=== PATIENT | female | born 1955 | race Caucasian/White ===

== ENCOUNTER → 2016-03-15 | Outpatient (CLI) | payer BC ==
--- NOTE | 2016-03-17 09:48 | MM ---
Reason for exam: screening (asymptomatic). Last mammogram was performed 1 year and 5 months ago. History: Patient is postmenopausal and history of other cancer. Family history of breast cancer in maternal aunt at age 70. Took hormonal contraceptives for 5 years beginning at age 21. Physical Findings: A clinical breast exam by your physician is recommended on an annual basis and results should be correlated with mammographic findings. MG Screening Mammo w CAD Bilateral CC and MLO view(s) were taken. Prior study comparison: October 07, 2014, bilateral MG screening mammo w CAD. April 04, 2013, CAD bilateral diagnostic mammogram. The breast tissue is heterogeneously dense. This may lower the sensitivity of mammography. There is no discrete abnormality. No significant changes when compared with prior studies. ASSESSMENT: Negative, BI-RAD 1 RECOMMENDATION: Routine screening mammogram of both breasts in 1 year.
== END | disposition home or self-care (01) ==
LOC: RADMAMWWP 08:17
PROVIDERS: ATTEND Family Medicine
DX: Z12.31 Encounter for screening mammogram for malignant neoplasm of breast (principal)

== ENCOUNTER → 2017-04-11 | Outpatient (CLI) | payer BC ==
--- NOTE | 2017-04-12 13:51 | MM ---
Reason for exam: screening (asymptomatic). Last mammogram was performed 1 year and 1 month ago. History: Patient is postmenopausal and history of other cancer. Family history of breast cancer in maternal aunt at age 70. Took hormonal contraceptives for 5 years beginning at age 21. Physical Findings: A clinical breast exam by your physician is recommended on an annual basis and results should be correlated with mammographic findings. MG 3D Screening Mammo W/Cad Bilateral CC and MLO view(s) were taken. Prior study comparison: March 15, 2016, bilateral MG screening mammo w CAD. October 07, 2014, bilateral MG screening mammo w CAD. The breast tissue is heterogeneously dense. This may lower the sensitivity of mammography. Finding: There are typically benign round calcifications in the right breast. There is a chronic nodularity in the left breast. There is no discrete abnormality. ASSESSMENT: Benign, BI-RAD 2 RECOMMENDATION: Routine screening mammogram of both breasts in 1 year.
== END | disposition home or self-care (01) ==
LOC: RADMAMWWP 09:19
PROVIDERS: ATTEND Family Medicine
DX: Z12.31 Encounter for screening mammogram for malignant neoplasm of breast (principal)
CPT/HCPCS: 77063; 77067

== ENCOUNTER → 2017-11-29 | Outpatient (CLI) | payer BC ==
[2017-11-29 16:30] LABS: HCT 36.1 % (34.0-46.0); HGB 12.3 gm/dL (11.4-16.0); MCH 31.7 pg (25.0-35.0); MCHC 33.9 g/dL (31.0-37.0); MCV 93.5 fL (80.0-100.0); Platelet Count 226 k/uL (150-450); RBC 3.86 m/uL (3.80-5.40); RDW 12.1 % (11.5-15.5); WBC 5.3 k/uL (3.8-10.6)
[2017-11-29 16:38] LABS: Potassium 4.5 mmol/L (3.5-5.1)
== END ==
LOC: LABPAT 14:51
PROVIDERS: ATTEND Internal Medicine Interventional Cardiology
DX: Z01.812 Encounter for preprocedural laboratory examination (principal); I10 Essential (primary) hypertension; E78.1 Pure hyperglyceridemia; R07.9 Chest pain, unspecified; R06.02 Shortness of breath
CPT/HCPCS: 36415; 80051; 82565; 84520; 85027

== ENCOUNTER → 2017-12-02 | Day surgery (SDC) | payer BC ==
[2017-11-29 09:52] VITALS: BMI 28.1
[~2017-12-02] MED LIST: ALPRAZolam 0.25 MG TAB PO PRN; ALPRAZolam 0.5 MG TAB PO PRN; ASPIRIN 325 MG TAB PO STA; ATORVASTATIN 80 MG TAB PO ONE; ATORVASTATIN 80 MG TAB PO STA; IOPAMIDOL-370 125ML BTL INJ ONE; IV FLUID CONTINUATION 800 ML IV ONE; LIDOCAINE 1% INJ 10MG/ML (20 ML MDV) SQ ONE; MIDAZOLAM 2 MG/2 ML VIAL IVP ONE; MIDAZOLAM 2 MG/2 ML VIAL ONE; NITROGLYCERIN SL TABS 0.4 MG TAB SUBLINGUAL PRN; RX INFO: IV CONTRAST WAS GIVEN 1 EACH MISC MISCELLANE PRN; SODIUM CHLORIDE 0.9% 1,000 ML IV SCH; SODIUM CHLORIDE 0.9% 1,000 ML in EMPTY BAG 1 BAG IV ONE; fentaNYL (PF) 50 MCG/ML 2 ML AMP IVP ONE; fentaNYL (PF) 50 MCG/ML 2 ML AMP ONE
[2017-12-02 07:11] VITALS: RESP 16; TEMP 98.2
[2017-12-02] MEDS: BENZOCAINE SPRAY 1 CAN MUCOUS MEM ONE ×2 (07:41→07:50)
[2017-12-02] MEDS: MIDAZOLAM 2 MG/2 ML VIAL IVP ONE ×2 (07:42→07:50)
[2017-12-02] MEDS: fentaNYL (PF) 50 MCG/ML 2 ML AMP IVP ONE ×2 (07:42→07:50)
--- NOTE | 2017-12-02 08:35 | ECHOT ---
TRANSESOPHAGEAL ECHOCARDIOGRAM DATE OF SERVICE: 12/02/2017 PERFORMING PHYSICIAN: Je Pete MD, [facility]. PROCEDURE PERFORMED: Transesophageal echocardiogram. INDICATION: This is a pleasant 62-year-old female patient who was experiencing chest discomfort and shortness of breath. She was seen in the office recently. On physical examination, she was found to have a pansystolic murmur. She underwent a surface echocardiogram and that revealed turbulence across the LVOT with unclear if there is any subaortic line brain, basal septal hypertrophy, or aortic stenosis. The images quality were very poor and because of that, a transesophageal echocardiogram was recommended. COMPLICATION: None. LEVEL OF SEDATION: Moderate with sedation length of 10 minutes. PROCEDURE DESCRIPTION: After obtaining an informed consent, explaining the procedure, benefits, risks, complications and alternatives, the patient was brought to the transesophageal echocardiogram suite. A pulse oximetry and heart rate monitors were attached to the patient prior to the procedure. The patient's throat was sprayed using lidocaine locally. Following that, the patient was turned into left lateral position. A bite guard was placed and the patient was then sedated with the above doses of Versed and fentanyl in divided doses. Following that, the transesophageal echocardiogram probe was advanced through the bite guard into the mid esophagus where 2-D echocardiogram images as well as color Doppler images of various cardiac structures were obtained. We evaluated the interatrial septum using 2-D echocardiogram, color Doppler, and contrast study. The procedure was completed. There were no complications. FINDINGS: The left ventricular dimension and systolic function appeared to be within normal limits. The ejection fraction appeared to be around 50%. There was mild concentric LVH and also there was basal septal hypertrophy. The right ventricle is of normal size and function. Both atria are dilated in the moderate range. The left atrial appendage appeared to be free from any thrombus. The interatrial septum appeared to be intact and I did not see any evidence of [id number] shunt. The septum itself is hyperdynamic. The aortic valve is trileaflet valve and seems to be mildly thickened without stenosis with trace insufficiency. The mitral valve seems to be thickened as well with evidence of mitral valve prolapse with mild MR only. Thickened tricuspid valve leaflets with prolapsing of the tricuspid valve leaflets and evidence of moderate tricuspid regurgitation and the pulmonary artery systolic pressure was found out to be 50 mmHg indicating moderate pulmonary hypertension. CONCLUSION: 1. Normal left ventricular dimension and systolic function. 2. 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 3. Normal right ventricular dimension and systolic function. 4. Moderate biatrial enlargement. 5. Normal left atrial appendage without any evidence of thrombus. 6. Hyperdynamic interatrial septum without any evidence of shunt identified. 7. Trileaflet aortic valve without stenosis with mild insufficiency. 8. Thickened mitral valve leaflets with evidence of mitral valve prolapse I repeat li mitral valve with evidence of mitral valve prolapse and mild mitral regurgitation.. 9. Thickened tricuspid valve leaflets with evidence of moderate tricuspid regurgitation. 10.Moderate pulmonary hypertension. 11.No evidence of pericardial effusion. MMODL / IJN: [id number] /
[2017-12-02] MEDS: MIDAZOLAM 2 MG/2 ML VIAL IV ONE ×2 (09:18→09:48)
--- NOTE | 2017-12-02 11:41 | CC ---
CARDIAC CATHETERIZATION REPORT DATE OF SERVICE: December 02, 2017 PERFORMING PHYSICIAN: Je Pete MD. PROCEDURE PERFORMED: 1. Right heart catheterization. 2. Selective right and left coronary angiogram. 3. Left heart catheterization. 4. Left ventriculography. INDICATION: This is a very pleasant 62-year-old female patient who started recently experiencing intermittent episodes of exertional chest discomfort and exertional shortness of breath. She was found to have tricuspid regurgitation on surface echocardiogram in the office. She was brought today and underwent a transesophageal echocardiogram. Subsequently, she is scheduled to undergo a right and left heart catheterization. APPROACH: Right common femoral vein and right common femoral artery. COMPLICATION: None. LEVEL OF SEDATION: Moderate with a sedation length of 19 minutes. PROCEDURE DESCRIPTION: After obtaining an informed consent, the patient was brought to the cardiac shop laborer. The right common femoral vein was cannulated using micropuncture technique, the micropuncture wire passed easily then I placed an 8-Belizean in the vein. I did cannulate the right common femoral artery using micropuncture technique as well and I placed a 6-Belizean sheath in the right common femoral artery. After that, I did a right heart catheterization using 6-Belizean swan catheter which was initially placed at the wedge position then it was pulled back across the right heart chambers. Subsequently, selective right and left coronary angiogram was performed using JR4 and JL4 catheters. Left heart catheterization was performed using 6-Belizean pigtail catheter and then I did left ventriculography as well. The procedure was completed without any complication. HEMODYNAMICS: 1. The pulmonary capillary wedge pressure was 15 mmHg. 2. Pulmonary artery pressures as follows: Systolic 26, diastolic 14, and mean of 18 mmHg. 3. RV pressures were as follows: Systolic 25 and end-diastolic of 10 mmHg. 4. Right atrial pressure was 6 mmHg. 5. Left ventricular pressures were as follows: Systolic 125, end-diastolic of 13 mm Hg. SELECTIVE CORONARY ANGIOGRAM: 1. Right coronary artery is a large caliber vessel and it is a dominant vessel. The right coronary artery is angiographically normal. Distally, it bifurcates into PDA and PLV branches, both appear to be angiographically normal. 2. The left main is angiographically normal. It bifurcates into left circumflex and left anterior descending artery. 3. The left circumflex is a large caliber vessel. It is a nondominant vessel. The proximal circumflex is angiographically normal and gives rise into the first and second obtuse marginal branches both are angiographically normal. The mid circumflex is normal and gives rise into a third OM branch which appeared to be angiographically normal. The circumflex continued after that as a small-caliber vessel in the AV groove. 4. The LAD: The proximal LAD is angiographically normal. The mid LAD is normal as well and gives rise into a large diagonal branch, which bifurcates into 2 separate branches and the diagonal branch appeared to be angiographically normal. The LAD distal to the diagonal appeared to be a medium caliber vessel and seems to be angiographically normal. Left ventriculography was performed in the BALLESTEROS projection and using a power injection. The left ventricular systolic function seems to be on the low limits of normal with EF around 50% with mid anterior wall hypokinesia. CONCLUSION: 1. Normal right heart pressures. 2. Normal coronary angiogram. 3. Low normal left ventricular systolic function with EF around 50%. POSTPROCEDURE MANAGEMENT: Maximize medical treatment and follow up with the patient. MMODL / IJN: [id number] /
--- NOTE | 2017-12-02 11:49 | LTR ---
Date of Service: 12/02/2017 RE: Olivia Borges Dear Dr. Choi; Ms. Olivia Borges underwent today a transesophageal echocardiogram as well as a right and left heart catheterization. The transesophageal echocardiogram revealed moderate to severe tricuspid regurgitation with evidence of mitral valve prolapse and tricuspid valve prolapse as well. The MR was not bad though. The heart catheterization revealed normal right heart pressures and normal coronaries as well. At this point, I recommended maximize medical treatment and follow up on the tricuspid regurgitation as well as mitral valve apparatus. I want to thank you for allowing me to participate in her care and please do not hesitate to call if you have any question or concern. Sincerely, Je Pete MD MMJENNA / DIXIEN: [id number] /
[2017-12-02 16:02] VITALS: BP 110/65; PULSE 68
== END ==
LOC: CATHCVL 06:23
PROVIDERS: ATTEND Internal Medicine Interventional Cardiology
DX: I08.3 Combined rheumatic disorders of mitral, aortic and tricuspid valves (principal); I27.20 Pulmonary hypertension, unspecified; I10 Essential (primary) hypertension; Z87.891 Personal history of nicotine dependence; I42.2 Other hypertrophic cardiomyopathy; Z79.83 Long term (current) use of bisphosphonates; Z79.1 Long term (current) use of non-steroidal anti-inflammatories (NSAID); Z79.899 Other long term (current) drug therapy
CPT/HCPCS: 93312; 93320; 93325; 93460; C1760; C1769 ×2; C1894 ×2; J2250; J2001; J3010; Q9967

== ENCOUNTER → 2017-12-20 | Outpatient (CLI) | payer BC ==
[2017-12-20 10:53] LABS: Basophils % (A) 0 %; Eosinophils # (A) 0.1 k/uL (0-0.7); Eosinophils % (A) 2 %; HCT 39.5 % (34.0-46.0); HGB 13.4 gm/dL (11.4-16.0); Lymphocytes # (A) 1.1 k/uL (1.0-4.8); Lymphocytes % (A) 23 %; MCH 31.8 pg (25.0-35.0); MCHC 33.9 g/dL (31.0-37.0); MCV 93.7 fL (80.0-100.0); Mean Platelet Volume 7.1; Monocytes # (A) 0.3 k/uL (0-1.0); Monocytes % (A) 7 %; Neutrophils % (A) 66 %; Platelet Count 267 k/uL (150-450); RBC 4.21 m/uL (3.80-5.40); RDW 12.6 % (11.5-15.5); WBC 4.5 k/uL (3.8-10.6)
[2017-12-20 16:09] LABS: Albumin 4.5 g/dL (3.80-4.90); Albumin/Globulin Ratio 2.65 (1.20-2.10); Anion Gap 8.7 mmol/L (4.00-12.00); Calcium 9.7 mg/dL (8.7-10.3); Carbon Dioxide 26.3 mmol/L (21.6-31.8); Globulin 1.7 g/dL (2.1-3.7); LDL Cholesterol,Calculated 95.4 mg/dL (0.0-131.0); Magnesium 1.9 mg/dL (1.5-2.4); Potassium 4.2 mmol/L (3.5-5.5); Total Bilirubin 1.1 mg/dL (0.3-1.2); Total Protein 6.2 g/dL (6.2-8.2)
[2017-12-20 16:19] LABS: T4, Free (Free Thyroxine) 1.5 ng/dL (0.80-1.80)
[2017-12-21 06:59] LABS: VLDL Calculation 15.6 mg/dL (5.00-40.00)
== END | disposition home or self-care (01) ==
LOC: LABWHC1 09:23
PROVIDERS: ATTEND Internal Medicine Geriatric Medicine
DX: R00.1 Bradycardia, unspecified (principal); I10 Essential (primary) hypertension; K21.9 Gastro-esophageal reflux disease without esophagitis; I20.9 Angina pectoris, unspecified
CPT/HCPCS: 36415; 80053; 80061; 83735; 84439; 84443; 85025

== ENCOUNTER 2018-02-01 06:16 | Day surgery (SDC) | payer BC ==
[2018-01-31 09:27] VITALS: BMI 28.1
[~2018-02-01 06:16] MED LIST changes: -ALPRAZolam 0.25 MG TAB PO PRN; -ALPRAZolam 0.5 MG TAB PO PRN; -ASPIRIN 325 MG TAB PO STA; -ATORVASTATIN 80 MG TAB PO ONE; -ATORVASTATIN 80 MG TAB PO STA; +DEXAMETHASONE SOD PHOSPHATE 10 MG/ML 1 ML VIAL IV ONE; +HYDROmorphone 0.5 MG/0.5 ML SYRINGE IVP PRN; -IOPAMIDOL-370 125ML BTL INJ ONE; -IV FLUID CONTINUATION 800 ML IV ONE; +LACTATED RINGERS 1,000 ML IV SCH; +LIDOCAINE 1% 20 ML VIAL (10MG/ML) FOR IV START INTRADERMA PRN; -LIDOCAINE 1% INJ 10MG/ML (20 ML MDV) SQ ONE; +MIDAZOLAM 2 MG/2 ML VIAL IV PRN; -MIDAZOLAM 2 MG/2 ML VIAL IVP ONE; -MIDAZOLAM 2 MG/2 ML VIAL ONE; -NITROGLYCERIN SL TABS 0.4 MG TAB SUBLINGUAL PRN; +ONDANSETRON 4 MG/2 ML VIAL IVP ONE; -RX INFO: IV CONTRAST WAS GIVEN 1 EACH MISC MISCELLANE PRN; +SCOPOLAMINE 1.5MG/72HR PATCH TRANSDERM ONE; -SODIUM CHLORIDE 0.9% 1,000 ML IV SCH; -SODIUM CHLORIDE 0.9% 1,000 ML in EMPTY BAG 1 BAG IV ONE; +ceFAZolin IN SWFI 2 GM/20 ML SYRINGE IVP ONE; -fentaNYL (PF) 50 MCG/ML 2 ML AMP IVP ONE; -fentaNYL (PF) 50 MCG/ML 2 ML AMP ONE
[2018-02-01 06:51] VITALS: RESP 16; TEMP 98.2
[2018-02-01] MEDS ORDERED: MIDAZOLAM 2 MG/2 ML VIAL IV ONE (07:45)
[2018-02-01] MEDS ORDERED: HYDROcodone/APAP 5-325MG 1 EACH TAB PO PRN ×2 (07:52)
[2018-02-01] MEDS ORDERED: ONDANSETRON 4 MG/2 ML VIAL IVP PRN (07:52)
[2018-02-01] MEDS ORDERED: HYDROmorphone 1 MG/ML 1 ML SYRINGE IVP PRN (07:52)
[2018-02-01] MEDS ORDERED: PROPOFOL 10 MG/ML 20 ML VIAL IV ONE (07:57)
[2018-02-01] MEDS ORDERED: ROPIVACAINE 5 MG/ML 30 ML VIAL ONE (07:57)
[2018-02-01] MEDS ORDERED: LIDOCAINE 1% INJ 10MG/ML (20 ML MDV) ONE (07:57)
[2018-02-01] MEDS ORDERED: ePHEDrine SULFATE/0.9% NACL/PF 50 MG/5 ML SYRINGE IV ONE (07:57)
[2018-02-01] MEDS ORDERED: fentaNYL (PF) 50 MCG/ML 2 ML AMP ONE (07:57)
[2018-02-01] MEDS ORDERED: LACTATED RINGERS 1,000 ML IV SCH (08:00)
[2018-02-01] MEDS ORDERED: LACTATED RINGERS 1,000 ML IV ONE (09:43)
--- NOTE | 2018-02-01 10:17 | XR ---
Fluoroscopy History: ORIF RT ankle. 1 min 55 sec FL time. 3 images scanned.
--- NOTE | 2018-02-01 10:32 | P.OP ---
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 Right gastrocnemius equinus contracture Postoperative Diagnosis: Same Procedure(s) Performed: 1. Right talonavicular joint fusion 2. Right gastrocnemius recession Anesthesia: HUAN Surgeon: Mahesh Browning Outside Machinist Supervisor #1: Manjeet Torres Estimated Blood Loss (ml): 10 IV fluids (ml): 950 Pathology: none sent Condition: stable Disposition: PACU Indications for Procedure: The patient is a very pleasant 62-year-old female with residual right clubfoot and talonavicular arthritis. She had surgery when she was a small child has had symptoms intermittently throughout her adult life. She has been seeing me for the last several years. Treatment to date has included icing, activity modification, anti-inflammatory medications and orthotics. She continued to have pain and had an image guided talonavicular joint injection in the operating room. She had almost complete relief of her symptoms following this image guided injection. Clinically most of the symptoms seem to be coming from her talonavicular joint. She did have some degenerative changes in the posterior facet of the subtalar joint but had minimal symptoms in the hindfoot. She failed to improve with conservative treatment and requested surgery. Since she had complete resolution of her symptoms with the image guided talonavicular joint injection I recommended an isolated fusion of the talonavicular joint. She also had a gastrocnemius equinus contracture and I recommended a surgical lengthening. We discussed potential risks and competitions of surgery including but not limited to risk of anesthesia, superficial infection, deep infection, delayed wound healing, wound necrosis, damage to local blood vessels or nerves, damage local tenderness structures, nonunion of the fusion site, malunion the fusion site, over correction of her deformity, under correction of her deformity, continued or worsened pain, synthetic hardware, need for further surgery, weakness, DVT, PE, other medical complications, and generalized dissatisfaction with surgery. The patient voiced understanding of this and provided her verbal and written consent to go forward with surgery. Description of Procedure: The patient was identified in preoperative holding and the correct right leg was marked with my initials. I reviewed the consent form with the patient and her . All their questions were answered. The patient was given a popliteal and saphenous nerve block by anesthesia. She was then brought back to the operating room by anesthesia. She was positioned on the OR table where general anesthetic was administered. Preoperative antibiotics were given. A tourniquet was applied to the proximal aspect of the right leg. All bony prominences were well-padded. The patient's right leg was then prepped and draped in the standard sterile fashion. Prior to starting surgery timeout was performed identifying the correct patient, operative extremity, and procedure. The patient's leg was then elevated, exsanguinated with an Esmarch bandage, and the tourniquet was inflated to 250 mmHg. I began by performing a gastrocnemius recession. A 3 cm incision was marked out over the posteromedial calf at the distal medial muscle belly of the gastrocnemius. Skin incision was made with a scalpel and dissection was carried down carefully to the subcutaneous tissue with tenotomy scissors. The superficial fascia was identified and incised longitudinally in line with the skin incision. I then bluntly developed interval between the gastrocnemius aponeurosis and superficial fascia. The sural nerve was seen to be adherent gastrocnemius aponeurosis and was gently teased off with a Horton elevator. Modified right angle retractors were placed and the gastrocnemius aponeurosis was sharply released from lateral to medial. There was then a significant increase in the amount of passive dorsiflexion of the ankle with the knee extended. The wound was copiously irrigated and closed in layers. Attention was then turned to the dorsal foot. A longitudinal incision was marked out over the dorsomedial aspect of the foot centered over the talonavicular joint. Skin incision was made with a scalpel dissection was carried down To the subcutaneous tissue. The interval between the EHL and tibialis anterior was exposed. The capsule over the talonavicular joint was incised longitudinally in line with the skin incision. On inspection there were large peripheral osteophytes from the talonavicular joint. The capsule was thickened and inflamed. There was a large amount of clear synovial fluid. K wires were placed in the talar head and the ventricular and a distractor was applied to allow visualization of the joint. On inspection there was complete loss of articular cartilage from the talar head over the lateral two thirds the joint. There is complete loss of cartilage throughout the navicular. Using a series of osteotomes and curettes all of the cartilage was removed. It was thoroughly irrigated with sterile saline. A 2.0 mm drill bit was used perforate the exposed subchondral bone to facilitate fusion. Augment was placed in the joint. The K wires were then removed and the joint was positioned so a plantigrade position of the foot was achieved. The joint was then pinned. A K wire was then placed through a stab incision over the navicular tuberosity across the navicular and into the talar body. The position of the K wire was verified with fluoroscopy. A partially threaded 5.5 mm cannulated screws placed over the guidewire generating excellent compression across the joint. I then placed a second 4.0 mm partially threaded cannulated screw across the dorsal navicular and into the talar body. Final fluoroscopic images were then taken. The joint appeared to be adequately compressed with no remaining joint space visualized. The hardware appeared to be completely within the talus and there were no intra-articular screws. Clinically the foot appeared to be in a plantigrade position. On inspection of the talonavicular joint there was excellent compression seemed to the surgical wound. The wound was copiously irrigated. The joint capsule of the talonavicular joint was closed with a single interrupted 2-0 Vicryl stitch. The retinaculum over the tendons was closed with a running 2-0 Vicryl. Several attaining us 2-0 Vicryl were placed to reapproximate the subcutaneous tissue. The skin was closed with a running 3-0 Monocryl subcuticular stitch. Steri-Strips were applied. I verified that all instrument, sponge, and sharp counts were correct. The tourniquet was let down. A sterile dressing consisting of Betadine soaked Adaptic, 4 x 4, and web rolls applied. The drapes were taken down and a well- padded bulky Naranjo splint was placed with the ankle in neutral. The patient was then transferred to a [place]. She was awoken from her anesthetic, extubated , and transferred to PACU without the procedure well. Manjeet Torres PA-C was required as a skilled assistant film editor for patient positioning, surgical exposure, retraction, preparation of the joint, placement of hardware, closure of wounds, application of splint. Plan: The patient is going to discharge home as an outpatient. She is to remain strictly nonweightbearing on her operative extremity. She is keep the splint on at all times. She is encouraged ice and elevate to help with resolution of swelling and pain. She'll follow-up in the office in 2 weeks for splint removal, nonweightbearing x-rays of the foot out of the splint, suture removal, and placement of a cast.
[2018-02-01] MEDS ORDERED: KETOROLAC 30 MG/ML 1 ML VIAL IVP ONE (10:55)
[2018-02-01 12:07] VITALS: BP 108/64; PULSE 89
--- NOTE | 2018-02-01 14:10 | P.ONQ ---
Anesthesiology Proc Note - PNB - Peripheral Nerve Block Performed Right Popliteal Single Time Out Performed: Yes Procedure Start Time: 07:45 Procedure Stop Time: 07:51 Indication: Acute Post-Operative Pain, Requested by physician Sedation Type: Sedate with meaningful contact maintained Preparation: Sterile Prep Position: Supine Needle Size: 50mm (2") Needle Gauge: 21 Technique: Ultrasound Injectate: 0.5% Ropivacaine (see comment for volume) (ropi .5% 20 cc) Blood Aspirated: No Pain Paresthesia on Injection Noted: No Resistance on Injection: Normal Events: Uneventful and Well Tolerated
== END 2018-02-01 13:51 | disposition home or self-care (01) ==
LOC: OR 06:16
PROVIDERS: ATTEND Orthopaedic Surgery
DX: M19.071 Primary osteoarthritis, right ankle and foot (principal); M21.541 Acquired clubfoot, right foot; M62.461 Contracture of muscle, right lower leg; I10 Essential (primary) hypertension; Z85.828 Personal history of other malignant neoplasm of skin; Z87.891 Personal history of nicotine dependence; I71.4 Abdominal aortic aneurysm, without rupture; Z79.82 Long term (current) use of aspirin; Z79.1 Long term (current) use of non-steroidal anti-inflammatories (NSAID); Z79.899 Other long term (current) drug therapy
CPT/HCPCS: 28740; 27687; 97161; 64450; 73600; C1713 ×2; J2250; J1100; J2405; J2001; J3010; J1885; J2795; J2704; J0690; 64493

== ENCOUNTER → 2018-06-21 | Outpatient (CLI) | payer BC ==
--- NOTE | 2018-06-21 15:21 | BD ---
EXAMINATION TYPE: Axial Bone Density DATE OF EXAM: 06/21/2018 COMPARISON: NONE CLINICAL HISTORY: M81.0 Height: 62.2 IN Weight: 185 LBS RISK FACTORS HISTORY OF: Active: YES Diet low in dairy products/other sources of calcium: YES Postmenopausal woman: AGE 54 MEDICATIONS: Additional Medications: CALCIUM, VIT D, MULTI VITAMINS, EYE VITAMIN, EXAM MEASUREMENTS: Bone mineral densitometry was performed using the Snapguide System. Bone mineral density as measured about the Lumbar spine is: ----- L1-L4(G/cm2): 1.369 T Score Values are as follows: ----- L2: 0.5 ----- L3: 2.1 ----- L4: 3.9 ----- L1-L4: 1.6 Bone mineral density BASELINE Bone mineral density about the R hip (g/cm2): 0849 Bone mineral density about the L hip (g/cm2): 0.919 T Score values are as follows: -----R Neck: -1.4 -----L Neck: -0.9 -----R Total: -1.2 -----L Total: 0.0 Bone mineral density BASELINE IMPRESSION: Osteopenia (T Score between -2.5 and -1). There is slightly increased risk of fracture and the patient may be considered for treatment. Re-Screen 2-5 years. NOTE: T-SCORE=SD OF THE YOUNG ADULT MEAN.
--- NOTE | 2018-06-23 08:25 | MM ---
Reason for exam: screening (asymptomatic). Last mammogram was performed 1 year and 2 months ago. History: Patient is postmenopausal and history of other cancer. Family history of breast cancer in maternal aunt at age 70. Took hormonal contraceptives for 5 years beginning at age 21. Physical Findings: A clinical breast exam by your physician is recommended on an annual basis and results should be correlated with mammographic findings. MG 3D Screening Mammo W/Cad Bilateral CC and MLO view(s) were taken. Prior study comparison: April 11, 2017, bilateral MG 3d screening mammo w/cad. March 15, 2016, bilateral MG screening mammo w CAD. There are scattered fibroglandular densities. There is chronic nodularity in the left lower inner quadrant. No significant changes when compared with prior studies. ASSESSMENT: Benign, BI-RAD 2 RECOMMENDATION: Routine screening mammogram of both breasts in 1 year. Manage on a clinical basis with regard to patient's chronic left chest wall fullness. If there is a palpable abnormality, patient should be referred for ultrasound.
== END | disposition home or self-care (01) ==
LOC: RADMAMWWP 13:48
PROVIDERS: ATTEND Internal Medicine Geriatric Medicine
DX: Z12.31 Encounter for screening mammogram for malignant neoplasm of breast (principal); M85.851 Other specified disorders of bone density and structure, right thigh
CPT/HCPCS: 77063; 77067; 77080

== ENCOUNTER 2019-04-10 08:42 | Day surgery (SDC) | payer BC ==
[2019-04-06 12:55] VITALS: BMI 26.6
[~2019-04-10 08:42] MED LIST changes: -DEXAMETHASONE SOD PHOSPHATE 10 MG/ML 1 ML VIAL IV ONE; -HYDROmorphone 0.5 MG/0.5 ML SYRINGE IVP PRN; -MIDAZOLAM 2 MG/2 ML VIAL IV PRN; -ONDANSETRON 4 MG/2 ML VIAL IVP ONE; -SCOPOLAMINE 1.5MG/72HR PATCH TRANSDERM ONE; -ceFAZolin IN SWFI 2 GM/20 ML SYRINGE IVP ONE
[2019-04-10 08:58] VITALS: RESP 16; TEMP 96.9
[2019-04-10] MEDS ORDERED: PROPOFOL 10 MG/ML 20 ML VIAL IV ONE (09:46)
[2019-04-10] MEDS ORDERED: LIDOCAINE 1% INJ 10MG/ML (20 ML MDV) ONE (09:46)
[2019-04-10] MEDS ORDERED: LACTATED RINGERS 1,000 ML IV ONE (10:34)
--- NOTE | 2019-04-10 10:37 | P.PCN ---
Date of Procedure: 04/10/19 Description of Procedure: BRIEF HISTORY: Patient is a 64-year-old female who presents for outpatient colonoscopy for screening for malignant neoplasm of the colon. She reports last colonoscopy was 5 years ago with polyps removed. She denies any change in bowel habits, blood per rectum or abdominal pain. PROCEDURE PERFORMED: Colonoscopy with polypectomy. PREOPERATIVE DIAGNOSIS: Screening for malignant neoplasm of the colon, last colonoscopy 5 years ago, patient does report polypectomy in the past. ESTIMATED BLOOD LOSS: Minimal. IV sedation per Anesthesia. PROCEDURE: After informed consent was obtained, the patient, was brought into the endoscopy unit. IV sedation was administered by Anesthesia under continuous monitoring. Digital rectal examination was normal. Initially the Olympus CF-190 flexible video colonoscope was then inserted in the rectum, gradually advanced into the cecum without any difficulty. Careful examination was performed as the scope was gradually being withdrawn. Ileocecal valve and the appendiceal orifice were visualized and appeared normal. Prep was excellent. Mucosa of the cecum, ascending colon, transverse colon, descending colon, sigmoid colon, and rectum appeared normal. Diminutive 2 mm cecal polyp removed with cold forcep polypectomy. 2 flat ascending colon polyps measuring 4 and 6 mm in size removed with cold snare polypectomy. Diminutive 2 mm transverse colon polyp removed with cold forcep polypectomy. Diminutive 2 mm descending colon polyp removed with cold forcep polypectomy. Retroflexion was performed in the rectum and no lesions were seen. The patient tolerated the procedure well. IMPRESSION: 3 diminutive polyps removed from the cecum, transverse colon and descending colon with cold forceps. 2 small descending colon polyps removed with cold snare polypectomy. RECOMMENDATIONS: Findings of this examination were discussed with the patient and her family. Okay to resume diet. Okay to resume medications. Await pathology from polypectomies. Would recommend repeat colonoscopy in 5 years pending pathology from polypectomies.
[2019-04-10 10:48] VITALS: BP 108/70; PULSE 59
== END 2019-04-10 11:27 | disposition home or self-care (01) ==
LOC: ORWHC2ENDO 08:42
PROVIDERS: ATTEND Internal Medicine
DX: Z12.11 Encounter for screening for malignant neoplasm of colon (principal); D12.0 Benign neoplasm of cecum; D12.2 Benign neoplasm of ascending colon; D12.3 Benign neoplasm of transverse colon; K63.5 Polyp of colon; Z86.010 Personal history of colon polyps; I10 Essential (primary) hypertension; Z87.891 Personal history of nicotine dependence; Z79.1 Long term (current) use of non-steroidal anti-inflammatories (NSAID); Z79.899 Other long term (current) drug therapy; Z90.49 Acquired absence of other specified parts of digestive tract; Z98.890 Other specified postprocedural states; Z98.51 Tubal ligation status; Z80.0 Family history of malignant neoplasm of digestive organs
CPT/HCPCS: 88305; 45380; 45385; J2001; J2704

== ENCOUNTER → 2019-09-20 | Outpatient (CLI) | payer BC ==
--- NOTE | 2019-09-21 09:26 | MM ---
Reason for exam: screening (asymptomatic). Last mammogram was performed 1 year and 3 months ago. History: Patient is postmenopausal and history of other cancer. Family history of breast cancer in maternal aunt at age 70. Took hormonal contraceptives for 5 years beginning at age 21. Physical Findings: A clinical breast exam by your physician is recommended on an annual basis and results should be correlated with mammographic findings. MG 3D Screening Mammo W/Cad Bilateral CC and MLO view(s) were taken. Prior study comparison: June 21, 2018, bilateral MG 3d screening mammo w/cad. April 11, 2017, bilateral MG 3d screening mammo w/cad. The breast tissue is heterogeneously dense. This may lower the sensitivity of mammography. Finding: There are grouped/clustered vee like calcifications in the subareolar position of the right breast. ASSESSMENT: Incomplete: need additional imaging evaluation, BI-RAD 0 RECOMMENDATION: Special view mammogram of the right breast. [facility] will attempt to contact patient to return for supplemental views.
== END | disposition home or self-care (01) ==
LOC: RADMAMWWP 09:52
PROVIDERS: ATTEND Internal Medicine Geriatric Medicine
DX: Z12.31 Encounter for screening mammogram for malignant neoplasm of breast (principal)
CPT/HCPCS: 77063; 77067

== ENCOUNTER → 2019-09-28 | Outpatient (CLI) | payer BC ==
--- NOTE | 2019-10-02 09:59 | MM ---
Reason for exam: additional evaluation requested from abnormal screening. Last mammogram was performed less than 1 month ago. History: Patient is postmenopausal and history of other cancer. Family history of breast cancer in maternal aunt at age 70 and breast cancer in maternal cousin. Took hormonal contraceptives for 5 years beginning at age 21. Physical Findings: Nurse did not find any significant physical abnormalities on exam. MG 3D Work Up W/Cad RT CC with magnification, ML with magnification, and ML view(s) were taken of the right breast. Prior study comparison: September 20, 2019, bilateral MG 3d screening mammo w/cad. June 21, 2018, bilateral MG 3d screening mammo w/cad. Benign calcifications. These results were verbally communicated with the patient and result sheet given to the patient on 09/28/19. ASSESSMENT: Benign, BI-RAD 2 RECOMMENDATION: Return to routine screening mammogram schedule for both breasts.
== END | disposition home or self-care (01) ==
LOC: RADMAMWWP 09:39
PROVIDERS: ATTEND Internal Medicine Geriatric Medicine
DX: R92.8 Other abnormal and inconclusive findings on diagnostic imaging of breast (principal)
CPT/HCPCS: 77061; 77065

== ENCOUNTER → 2020-12-15 | Outpatient (CLI) | payer BC ==
--- NOTE | 2020-12-16 13:35 | MM ---
Reason for exam: screening (asymptomatic). Last mammogram was performed 1 year and 3 months ago. History: Patient is postmenopausal and history of other cancer. Family history of breast cancer in maternal aunt at age 70 and breast cancer in maternal cousin. Took hormonal contraceptives for 5 years beginning at age 21. Physical Findings: A clinical breast exam by your physician is recommended on an annual basis and results should be correlated with mammographic findings. MG 3D Screening Mammo W/Cad Bilateral CC and MLO view(s) were taken. Prior study comparison: September 20, 2019, bilateral MG 3d screening mammo w/cad. June 21, 2018, bilateral MG 3d screening mammo w/cad. April 11, 2017, bilateral MG 3d screening mammo w/cad. March 15, 2016, bilateral MG screening mammo w CAD. There are scattered fibroglandular densities. No significant changes when compared with prior studies. ASSESSMENT: Benign, BI-RAD 2 RECOMMENDATION: Routine screening mammogram of both breasts in 1 year.
== END | disposition home or self-care (01) ==
LOC: RADMAMWWP 10:53
PROVIDERS: ATTEND Internal Medicine Geriatric Medicine
DX: Z12.31 Encounter for screening mammogram for malignant neoplasm of breast (principal); Z80.3 Family history of malignant neoplasm of breast
CPT/HCPCS: 77063; 77067

== ENCOUNTER → 2021-01-28 | Outpatient (CLI) | payer BC ==
--- NOTE | 2021-01-28 23:51 | BD ---
EXAMINATION TYPE: Axial Bone Density DATE OF EXAM: 01/28/2021 COMPARISON: NONE CLINICAL HISTORY: Height: 5 TF 6 IN Weight: 170 FRAX RISK QUESTIONS: Alcohol (3 or more units per day): NO Family History (Parent hip fracture): NO Glucocorticoids (More than 3mos): NO (Ex: prednisone, prednisolone, methylprednisolone, dexamethasone, and hydrocortisone). History of Fracture in Adulthood: YES Secondary Osteoporosis: 1. Type 1 Diabetes: NO 2. Hyperthyroidism: NO 3. Menopause before 45: NO 4. Malnutrition: NO 5. Chronic liver disease: NO Rheumatoid Arthritis: NO Current Tobacco Use: NO RISK FACTORS HISTORY OF: Surgery to Spine/Hip(right/left)/Wrist (right/left): NO Family History of Osteoporosis: NO Active: YES Diet low in dairy products/other sources of calcium: NO Postmenopausal woman: YES Take estrogen and/or progesterone medications: NO Lost more than 2 inches in height since high school: NO Frequent falls: NO Poor Health: GOOD Hyperparathyroidism: NO Adrenal Insufficiency: NO MEDICATIONS: Additional Medications: HYDROCHLOROTHIAZIDE, Additional History: EXAM MEASUREMENTS: Bone mineral densitometry was performed using the [employer] System. Bone mineral density as measured about the Lumbar spine is: ----- L1-L4(G/cm2): 1.376 T Score Values are as follows: ----- L2: 0.8 ----- L3: 2.7 ----- L4: 3.4 ----- L1-L4: 1.6 Bone mineral density has: INCREASED 0.6 % since study of: 2018 Bone mineral density about the R hip (g/cm2): 0.870 Bone mineral density about the L hip (g/cm2): 0.923 T Score values are as follows: -----R Neck: -1.2 -----L Neck: -0.8 -----R Total: -0.9 -----L Total: -0.2 Bone mineral density has: INCREASED 0.3 % since study of: 2019 IMPRESSION: Osteopenia (T Score between -2.5 and -1). There is slightly increased risk of fracture and the patient may be considered for treatment. Re-Screen 2-5 years. NOTE: T-SCORE=SD OF THE YOUNG ADULT MEAN.
== END | disposition home or self-care (01) ==
LOC: RADBDWWP 12:33
PROVIDERS: ATTEND Internal Medicine Geriatric Medicine
DX: M85.88 Other specified disorders of bone density and structure, other site (principal)
CPT/HCPCS: 77080

== ENCOUNTER 2021-03-27 12:15 | Inpatient (IN) | payer MEDICARE, BC ==
[2021-03-27 13:39] LABS: Basophils % (A) 0 %; Eosinophils # (A) 0.1 k/uL (0-0.7); Eosinophils % (A) 3 %; HCT 37.6 % (34.0-46.0); HGB 12.9 gm/dL (11.4-16.0); Lymphocytes # (A) 1.5 k/uL (1.0-4.8); Lymphocytes % (A) 34 %; MCH 32.5 pg (25.0-35.0); MCHC 34.4 g/dL (31.0-37.0); MCV 94.3 fL (80.0-100.0); Mean Platelet Volume 7.1; Monocytes # (A) 0.3 k/uL (0-1.0); Monocytes % (A) 7 %; Neutrophils # (A) 2.3 k/uL (1.3-7.7); Neutrophils % (A) 53 %; Platelet Count 255 k/uL (150-450); RBC 3.99 m/uL (3.80-5.40); RDW 11.9 % (11.5-15.5); WBC 4.4 k/uL (3.8-10.6)
--- NOTE | 2021-03-27 13:49 | XR ---
EXAMINATION TYPE: XR chest 2V DATE OF EXAM: 03/27/2021 COMPARISON: None INDICATION: Dysrhythmia,Covid TECHNIQUE: Frontal and lateral views of the chest are obtained. FINDINGS: The heart size is mildly prominent. The pulmonary vasculature is normal. The lungs are clear. IMPRESSION: 1. Mild cardiomegaly
[2021-03-27 14:01] LABS: ALT 22 U/L (4-34); AST 28 U/L (14-36); African American GFR (CKD) >90 (>60 ml/min/1.73 sqM); Albumin 4.1 g/dL (3.5-5.0); Alkaline Phosphatase 71 U/L (38-126); Anion Gap 6 mmol/L; Blood Urea Nitrogen 12 mg/dL (7-17); Calcium 9.3 mg/dL (8.4-10.2); Carbon Dioxide 24 mmol/L (22-30); Chloride 98 mmol/L (98-107); Glucose 83 mg/dL (74-99); Non-African American GFR(CKD) >90 (>60 ml/min/1.73 sqM); Potassium 4.6 mmol/L (3.5-5.1); Sodium 128 mmol/L (137-145); Total Protein 6.6 g/dL (6.3-8.2)
[2021-03-27 14:04] LABS: INR 0.9 (<1.2); Partial Thromboplastin Time 25.5 sec (22.0-30.0); Prothrombin Time 10.1 sec (9.0-12.0)
--- NOTE | 2021-03-27 14:24 | ED ---
General Adult HPI - General Chief complaint: Recheck/Abnormal Lab/Rx Stated complaint: abnormal EKG Time Seen by Provider: 03/27/21 12:41 Source: patient Limitations: no limitations - History of Present Illness Initial comments: 65-year-old female who presents emergency department from Dr. Choi office. She was seen last week in office for an enlarged lymph node. It they placed her on antibiotics and steroids. She was to follow up today reevaluation. She subsequently developed cold-like symptoms. In office, the patient had a bradycardic rhythm. EKG was performed which demonstrated long sinus pauses. They tested her for cold and she was Covid positive. I did recommend she come into the emergency room for further cardiac evaluation. She denies previous history of cardiac disease. Patient not on any rate controlling medications. Denies previous history of cardiac workup. No other alleviating, precipitating or modifying factors - Related Data Home Medications Medication Instructions Recorded Confirmed Ascorbic Acid [Vitamin C] 1,000 mg PO DAILY 11/29/17 03/27/21 Multivit-Min/Iron/Folic/Lutein 1 tab PO DAILY 11/29/17 03/27/21 [Centrum Silver Women Tablet] Retinavites Supplement 1 tab PO DAILY 11/29/17 03/27/21 hydroCHLOROthiazide 25 mg PO Q48H 11/29/17 03/27/21 Doxycycline [Vibramycin] 100 mg PO BID 03/27/21 03/27/21 Allergies Allergy/AdvReac Type Severity Reaction Status Date / Time No Known Allergies Allergy Verified 03/27/21 13:43 Review of Systems ROS Statement: Those systems with pertinent positive or pertinent negative responses have been documented in the HPI. ROS Other: All systems not noted in ROS Statement are negative. Past Medical History Past Medical History: Cancer, Hypertension Additional Past Medical History / Comment(s): varicose veins, basal cell skin CA, hx. colon polyps History of Any Multi-Drug Resistant Organisms: None Reported Past Surgical History: Cholecystectomy, Heart Catheterization, Orthopedic Surgery, Tubal Ligation Additional Past Surgical History / Comment(s): club foot surg as ,basal cell removed-Moh's procedure, right foot surg. Past Anesthesia/Blood Transfusion Reactions: No Reported Reaction, Motion Sickness Past Psychological History: No Psychological Hx Reported Smoking Status: Never smoker Past Alcohol Use History: Occasional Past Drug Use History: Marijuana - Past Family History Mother Family Medical History: No Reported History Father Family Medical History: Cancer Additional Family Medical History / Comment(s): bladder,leukemia General Exam Limitations: no limitations Course Vital Signs 03/27/21 03/27/21 03/27/21 12:24 13:28 15:00 Temperature 97.4 F L Pulse Rate 74 62 65 Respiratory 18 20 16 Rate Blood Pressure 139/83 124/84 122/89 O2 Sat by Pulse 100 97 97 Oximetry EKG Findings - EKG Comments: EKG Findings:: EKG demonstrates a sinus bradycardia with a ventricular rate of 56. NH interval 178. QRS 100. QTC of 401. No acute ST segment elevations or depressions. No signs of high degree heart block. Medical Decision Making - Medical Decision Making Upon arrival patient was placed into room 4. I did review her EKG which does demonstrate some sinus pauses. 12-lead EKG is obtained here which demonstrates no acute process. Laboratory studies are conducted. Sodium is 128. Chest x- ray demonstrates no acute process. Mild cardiomegaly. Results discussed the patient. I did call and speak with Dr. Tenorio recommend cardiac monitoring overnight. Patient agrees to stay. Spoke with Dr. Choi who agreed to admit the patient. Patient has received recoated vaccines and therefore does not qualify for antibodies. - Lab Data Result diagrams: 03/27/21 13:27 03/27/21 13:27 Lab Results 03/27/21 03/27/21 03/27/21 Range/Units 13:27 13:27 13:27 WBC 4.4 (3.8-10.6) k/uL RBC 3.99 (3.80-5.40) m/uL Hgb 12.9 (11.4-16.0) gm/dL Hct 37.6 (34.0-46.0) % MCV 94.3 (80.0-100.0) fL MCH 32.5 (25.0-35.0) pg MCHC 34.4 (31.0-37.0) g/dL RDW 11.9 (11.5-15.5) % Plt Count 255 (150-450) k/uL MPV 7.1 Neutrophils % 53 % Lymphocytes % 34 % Monocytes % 7 % Eosinophils % 3 % Basophils % 0 % Neutrophils # 2.3 (1.3-7.7) k/uL Lymphocytes # 1.5 (1.0-4.8) k/uL Monocytes # 0.3 (0-1.0) k/uL Eosinophils # 0.1 (0-0.7) k/uL Basophils # 0.0 (0-0.2) k/uL PT 10.1 (9.0-12.0) sec INR 0.9 (<1.2) APTT 25.5 (22.0-30.0) sec Sodium 128 L (137-145) mmol/L Potassium 4.6 (3.5-5.1) mmol/L Chloride 98 (98-107) mmol/L Carbon Dioxide 24 (22-30) mmol/L Anion Gap 6 mmol/L BUN 12 (7-17) mg/dL Creatinine 0.58 (0.52-1.04) mg/dL Est GFR (CKD-EPI)AfAm >90 (>60 ml/min/1.73 sqM) Est GFR (CKD-EPI)NonAf >90 (>60 ml/min/1.73 sqM) Glucose 83 (74-99) mg/dL Calcium 9.3 (8.4-10.2) mg/dL Magnesium 2.0 (1.6-2.3) mg/dL Total Bilirubin 1.0 (0.2-1.3) mg/dL AST 28 (14-36) U/L ALT 22 (4-34) U/L Alkaline Phosphatase 71 (38-126) U/L Troponin I (0.000-0.034) ng/mL Total Protein 6.6 (6.3-8.2) g/dL Albumin 4.1 (3.5-5.0) g/dL 03/27/21 Range/Units 13:27 WBC (3.8-10.6) k/uL RBC (3.80-5.40) m/uL Hgb (11.4-16.0) gm/dL Hct (34.0-46.0) % MCV (80.0-100.0) fL MCH (25.0-35.0) pg MCHC (31.0-37.0) g/dL RDW (11.5-15.5) % Plt Count (150-450) k/uL MPV Neutrophils % % Lymphocytes % % Monocytes % % Eosinophils % % Basophils % % Neutrophils # (1.3-7.7) k/uL Lymphocytes # (1.0-4.8) k/uL Monocytes # (0-1.0) k/uL Eosinophils # (0-0.7) k/uL Basophils # (0-0.2) k/uL PT (9.0-12.0) sec INR (<1.2) APTT (22.0-30.0) sec Sodium (137-145) mmol/L Potassium (3.5-5.1) mmol/L Chloride (98-107) mmol/L Carbon Dioxide (22-30) mmol/L Anion Gap mmol/L BUN (7-17) mg/dL Creatinine (0.52-1.04) mg/dL Est GFR (CKD-EPI)AfAm (>60 ml/min/1.73 sqM) Est GFR (CKD-EPI)NonAf (>60 ml/min/1.73 sqM) Glucose (74-99) mg/dL Calcium (8.4-10.2) mg/dL Magnesium (1.6-2.3) mg/dL Total Bilirubin (0.2-1.3) mg/dL AST (14-36) U/L ALT (4-34) U/L Alkaline Phosphatase (38-126) U/L Troponin I <0.012 (0.000-0.034) ng/mL Total Protein (6.3-8.2) g/dL Albumin (3.5-5.0) g/dL Disposition Clinical Impression: Sinus bradycardia, Sinus pause Disposition: ADMITTED IP TO THIS [facility] Condition: Stable Is patient prescribed a controlled substance at d/c from ED?: No Decision to Admit Reason: Admit from EC Decision Date: 03/27/21 Decision Time: 14:48
[2021-03-27] MEDS ORDERED: NALOXONE 0.4 MG/ML 1 ML VIAL IV PRN (14:48)
[2021-03-27] MEDS ORDERED: SODIUM CHLORIDE 0.9% 1,000 ML IV STA (15:06)
--- NOTE | 2021-03-27 16:14 | P.HPIM ---
History of Present Illness H&P Date: 03/27/21 Chief Complaint: Severe bradycardia with possible Mobitz 2, COVID-19, hypert ension HISTORY OF PRESENT ILLNESS 65-year-old female one of my office patient with past medical history of hypertension, skin cancer mild edema who has been doing well otherwise. Patient was in to take care of her grandkids in [place]'s past week apparently all her grandkids and family were sick with mild URI symptoms with sore throat and slight congestion mild cough and low-grade temperature. Patient initially did well but started on Tuesday this last week developed to have mild sinus symptom of upper respiratory infection symptoms become slightly bit worse today ended up coming to the office where was seen and evaluated at the time patient was diagnosed with rapid COVID-19 positive with her exam found to have severe bradycardia with pauses between her EKG showed severe bradycardia with possible Mobitz 2. Patient was not symptomatic at the time she is more tired and fatigued and have mild URI symptoms only. Patient was sent to demurs department her laboratory value showed mild hyponatremia chest x-ray was clear that time patient was not hypoxic her EKG again kept going with mean normal with mild bradycardia and bradycardia with pause and recurrent PVCs. Running the EKG with cardiology with current patient's symptoms and presentation decided to admit patient to the hospital will have an echocardiogram to exclude any possibility of pericardial effusion or pericarditis also patient be seen cardiology consultation if her symptoms are clear IV discharge in the next 48 hours. REVIEW OF SYSTEMS Constitutional: Mild fever and chills with mild night sweats generalized fatigue and tiredness with mild lethargy. EENT: Mild upper respiratory symptoms with sore throat mild congestion and ear discomfort increased secretion. No headache. No blurred vision or double vision, no loss of vision. No loss of Hearing, no ringing in the ears, no dizziness. Lungs: Mild shortness of breath with exertion with mild cough and congestion with mild wheezes. Cardiovascular: No chest pain, no lower extremity edema. No palpitations. No paroxysmal nocturnal dyspnea. No orthopnea. No lightheadedness or dizziness. No syncopal episodes. Abdominal: No abdominal pain. No nausea, vomiting. No diarrhea. No constipation. No bloody or tarry stools.. No loss of appetite. Genitourinary: No dysuria, increased frequency, urgency. No urinary retention. Musculoskeletal: No myalgias. No muscle weakness, no gait dysfunction, no frequent falls. No back pain. No neck pain. Integumentary: No wounds, no lesions. No rash or pruritus. No unusual bruising. No change in hair or nails. Neurologic: No aphasia. No facial droop. No change in mentation. No head injury. No headache. No paralysis. No paresthesia. Psychiatric: No depression. No anxiety. No mood swings. Endocrine: No abnormal blood sugars. No weight change. No excessive sweating or thirst. No cold intolerance. SOCIAL HISTORY She quit smoking in 1989 smoked one pack a day for 20 years. Drinks alcohol socially. FAMILY HISTORY Positive for hypertension, CAD and cancer. PHYSICAL EXAMINATION Gen: This is a well-developed no acute respiratory distress. HEENT: Head is atraumatic, normocephalic. Pupils equal, round. Sclerae is anicteric. Mild hyperemic throat slight congestion. NECK: Supple. No JVD. Mild lymphadenopathy. LUNGS: Decreased breath sound bilaterally with fine rhonchi positive mild fine crackles in the bases only. HEART: PMI is in the left fifth costal space anterior axillary line, regular rhythm and rate with mild bradycardia and PVCs with soft 2/6 ejection systolic murmur in the apex. ABDOMEN: Soft. Bowel sounds are present. No masses. No tenderness. EXTREMITIES: No pedal edema. No calf tenderness. NEUROLOGICAL: Patient is awake, alert and oriented x3. Cranial nerves 2 through 12 are grossly intact. ASSESSMENT AND PLAN 1. Severe bradycardia with possible Mobitz 2: Patient be admitted to the hospital, will be seen cardiology, echocardiogram will be done watch for any sign and symptom of bradycardia with lightheadedness dizziness or worsening symptoms over time. This is still can be arrhythmia related to COVID-19, patient has been seeing cardiology with normal EKG in the past. 2 acute COVID-19 infection: Patient has not been having any severe hypoxia mild URI symptoms only continue supportive care with dexamethasone, zinc, vitamin C and vitamin D continue oxygen if needed, bronchodilator and hydration. 3 hyponatremia: Very mild with no other electrolyte imbalance, patient will be hydrated gently repeat CMP in the next 24 hours. 4 bacterial bronchitis: Patient was on doxycycline as an outpatient which will be continue for now. 5 hypertension: Has been on Dyazide we'll resume medication. 6 hyperlipidemia: Has been on diet control only. 7 GI prophylaxis: Patient be started on Pepcid 20 mg daily. 8 DVT prophylaxis: Patient will be on Lovenox 40 mg daily. 9. COVID-19 testing, was positive patient had mild symptoms does not get qualified for any monoclonal antibiotic infusion at this point. CODE STATUS: Full code. Patient will be admitted to the hospital for a minimum of 2 night stay. Past Medical History Past Medical History: Cancer, GERD/Reflux, Hypertension Additional Past Medical History / Comment(s): Recent R neck swollen lymph node/treated with antibiotic, murmur/"leaky valve", occasional R foot pain, benign colon polyps, varicose veins. History of Any Multi-Drug Resistant Organisms: None Reported Past Surgical History: Cholecystectomy, Heart Catheterization, Orthopedic Surgery, Tonsillectomy, Tubal Ligation Additional Past Surgical History / Comment(s): club foot surg as ,basal cell removed-Moh's procedure, right foot/ankle gastrocneminus recession joint arthrodesis surg, colonoscopy/polypectomy. Past Anesthesia/Blood Transfusion Reactions: Motion Sickness Smoking Status: Former smoker - Past Family History Mother Family Medical History: COPD Additional Family Medical History / Comment(s): Mother is . She was a smoker. She had emphysema. Father Family Medical History: Cancer Additional Family Medical History / Comment(s): bladder cancer,leukemia. Father is Medications and Allergies Home Medications Medication Instructions Recorded Confirmed Type Ascorbic Acid [Vitamin C] 1,000 mg PO DAILY 11/29/17 03/27/21 History Multivit-Min/Iron/Folic/Lutein 1 tab PO DAILY 11/29/17 03/27/21 History [Centrum Silver Women Tablet] Retinavites Supplement 1 tab PO DAILY 11/29/17 03/27/21 History hydroCHLOROthiazide 25 mg PO Q48H 11/29/17 03/27/21 History Doxycycline [Vibramycin] 100 mg PO BID 03/27/21 03/27/21 History Allergies Allergy/AdvReac Type Severity Reaction Status Date / Time No Known Allergies Allergy Verified 03/27/21 13:43 Physical Exam Vitals: Vital Signs Temp Pulse Resp BP Pulse Ox 03/27/21 15:00 65 16 122/89 97 03/27/21 13:28 62 20 124/84 97 03/27/21 12:24 97.4 F L 74 18 139/83 100 Intake and Output 03/27/21 03/27/21 03/27/21 06:59 14:59 22:59 Other: Weight 76.657 kg 76.657 kg Results CBC & Chem 7: 03/27/21 13:27 03/27/21 13:27 Labs: Abnormal Lab Results - Last 24 Hours (Table) 03/27/21 Range/Units 13:27 Sodium 128 L (137-145) mmol/L Thrombosis Risk Factor Assmnt - Choose All That Apply Any of the Below Risk Factors Present?: Yes Each Factor Represents 1 point: Obesity (BMI >25) Other Risk Factors: Yes Each Risk Factor Represents 2 Points: Age 61-74 years, Malignancy Other congenital or acquired thrombophilia - If yes, enter type in comment: No Thrombosis Risk Factor Assessment Total Risk Factor Score: 5 Thrombosis Risk Factor Assessment Level: High Risk
[2021-03-27] MEDS ORDERED: ALBUTEROL HFA INHALER INHALATION PRN (16:15)
[2021-03-27] MEDS: dexAMETHasone 2 MG TAB PO SCH (16:40)
[2021-03-27] MEDS: DOXYCYCLINE 100 MG CAP PO SCH (20:23)
[2021-03-28 08:45] LABS: African American GFR (CKD) >90 (>60 ml/min/1.73 sqM); Anion Gap 6 mmol/L; Blood Urea Nitrogen 8 mg/dL (7-17); Calcium 9.9 mg/dL (8.4-10.2); Carbon Dioxide 26 mmol/L (22-30); Chloride 98 mmol/L (98-107); Glucose 112 mg/dL (74-99); Non-African American GFR(CKD) >90 (>60 ml/min/1.73 sqM); Potassium 4.3 mmol/L (3.5-5.1); Sodium 130 mmol/L (137-145)
[2021-03-28 08:46] LABS: Basophils % (A) 0 %; Eosinophils % (A) 0 %; HGB 14.4 gm/dL (11.4-16.0); Lymphocytes # (A) 1.1 k/uL (1.0-4.8); Lymphocytes % (A) 23 %; MCH 32.1 pg (25.0-35.0); MCHC 33.6 g/dL (31.0-37.0); MCV 95.6 fL (80.0-100.0); Mean Platelet Volume 7.2; Monocytes # (A) 0.3 k/uL (0-1.0); Monocytes % (A) 6 %; Neutrophils # (A) 3.4 k/uL (1.3-7.7); Neutrophils % (A) 69 %; Platelet Count 314 k/uL (150-450); RBC 4.49 m/uL (3.80-5.40); RDW 12.4 % (11.5-15.5); WBC 4.9 k/uL (3.8-10.6)
[2021-03-28] MEDS ORDERED: NON FORMULARY DRUG (Ascorbic Acid [Vitamin C] 1,000 MG Tablet) PO SCH (09:00)
[2021-03-28] MEDS: MULTIVITAMINS, THERA 1 EACH TAB PO SCH (09:55)
[2021-03-28] MEDS: dexAMETHasone 2 MG TAB PO SCH (09:55)
[2021-03-28] MEDS: FAMOTIDINE 20 MG TAB PO SCH (09:55)
[2021-03-28] MEDS: ENOXAPARIN 40 MG/0.4 ML SYRINGE SQ SCH ×2 (09:55→10:03)
[2021-03-28] MEDS: ASCORBIC ACID 500 MG TAB PO SCH (09:55)
[2021-03-28] MEDS: ZINC SULFATE 220 MG CAP PO SCH (09:55)
[2021-03-28] MEDS: DOXYCYCLINE 100 MG CAP PO SCH ×2 (09:55→21:46)
--- NOTE | 2021-03-28 10:14 | P.CRDCN ---
History of Present Illness Consult date: 03/28/21 Requesting physician: Aislinn Sharif Reason for Consult (text): Bradycardia with recurrent pauses Chief complaint: Presented from doctor's office for abnormal EKG findings History of present illness: History of Presenting Illness: Patient is a very pleasant 66-year-old female with a past medical history of hypertension, basal cell carcinoma, mitral valve prolapse, and pulmonary hypertension. She presented to the hospital on 03/27/21 with a chief complaint of abnormal EKG findings. Patient was reportedly being seen by her PCP for follow-up appointment secondary to enlarged lymph node. In the office, patient underwent testing for reports of cold-like symptoms and was found to be Covid positive and an EKG was completed revealing sinus bradycardia with cardiac p auses. Patient was sent to ER for further evaluation and a full cardiac workup. In the emergency department, EKG revealing sinus bradycardia at 56 bpm . Repeat EKG revealing sinus bradycardia at 59 bpm with cardiac pauses. And last EKG completed revealing normal sinus rhythm at 65 bpm. Labs unremarkable with the exception of mild hyponatremia with sodium of 130.. Troponin negative x3. Patient was admitted under internal medicine team and we were consulted for further evaluation of bradycardia and sinus pauses. Patient was seen and fully evaluated at the bedside. At time of assessment patient reports that she is asymptomatic to sinus bradycardia and reports long-standing history of b radycardia. Patient reports that she has a home blood pressure cuff and pulse oximeter and states that she has noted her heart rate to be in the 40s on multiple previous occasions over the years, but states she always thought the machine was just reading at wrong because she never felt any adverse effects. Patient denies experiencing any headache, lightheadedness, dizziness, changes in her vision or hearing, chest pain or palpitations, shortness of breath, dyspnea with exertion, or experiencing any numbness/tingling/weakness in her extremities. She does follow in the office with Dr. Palacio for evaluation of her mitral valve prolapse. Previous echocardiogram completed in 2018 revealed an EF of 50% with moderate biatrial enlargement, basal septal hypertrophy, hyperdynamic intra-atrial septum and thickened mitral valve with evidence of mitral valve prolapse, and moderate pulmonary hypertension. PHYSICAL EXAM: Thorough physical exam not completed secondary to limited evaluation/examination due to Covid19 Cardiovascular: Regular rate and rhythm, systolic murmur present, no gallops or rubs. No lower extremity edema, right ankle larger than left secondary to previous surgery. ASSESSMENT: Asymptomatic Sinus bradycardia with frequent cardiac pauses Covid 19 virus infection Hypertension Mitral valve prolapse Pulmonary hypertension Basal cell carcinoma PLAN: Management of Covid 19 virus infection per primary admitting internal medicine team. Continuous telemetry monitoring. Echocardiogram to be completed. Continue DVT prophylaxis with Lovenox Further recommendations pending patient course TSH and free T4 to be completed. Further recommendations pending clinical course. Thank you for allowing us to participate in the care of this pleasant patient. Do not hesitate to contact us with questions. Nurse practitioner note has been reviewed by physician. Signing provider agrees with the documented findings, assessment, and plan of care. Past Medical History Past Medical History: Cancer, GERD/Reflux, Hypertension Additional Past Medical History / Comment(s): Recent R neck swollen lymph node/treated with antibiotic, murmur/"leaky valve", occasional R foot pain, benign colon polyps, varicose veins. History of Any Multi-Drug Resistant Organisms: None Reported Past Surgical History: Cholecystectomy, Heart Catheterization, Orthopedic Surgery, Tonsillectomy, Tubal Ligation Additional Past Surgical History / Comment(s): club foot surg as infant,basal cell removed-Moh's procedure, right foot/ankle gastrocneminus recession joint arthrodesis surg, colonoscopy/polypectomy. Past Anesthesia/Blood Transfusion Reactions: Motion Sickness Smoking Status: Former smoker - Past Family History Mother Family Medical History: COPD Additional Family Medical History / Comment(s): Mother is . She was a smoker. She had emphysema. Father Family Medical History: Cancer Additional Family Medical History / Comment(s): bladder cancer,leukemia. Father is Medications and Allergies Home Medications Medication Instructions Recorded Confirmed Type Ascorbic Acid [Vitamin C] 1,000 mg PO DAILY 11/29/17 03/27/21 History Multivit-Min/Iron/Folic/Lutein 1 tab PO DAILY 11/29/17 03/27/21 History [Centrum Silver Women Tablet] Retinavites Supplement 1 tab PO DAILY 11/29/17 03/27/21 History hydroCHLOROthiazide 25 mg PO Q48H 11/29/17 03/27/21 History Doxycycline [Vibramycin] 100 mg PO BID 03/27/21 03/27/21 History Allergies Allergy/AdvReac Type Severity Reaction Status Date / Time No Known Allergies Allergy Verified 03/27/21 13:43 Physical Exam Vitals: Vital Signs Temp Pulse Pulse Resp BP BP Pulse Ox 03/28/21 04:00 62 18 116/67 98 03/28/21 00:00 72 18 123/78 93 L 03/27/21 20:00 75 16 132/85 95 03/27/21 17:03 97.5 F L 60 16 139/81 99 03/27/21 15:40 65 15 134/100 98 03/27/21 15:00 65 16 122/89 97 03/27/21 13:28 62 20 124/84 97 03/27/21 12:24 97.4 F L 74 18 139/83 100 Intake and Output 03/27/21 03/28/21 03/28/21 22:59 06:59 14:59 Intake Total 240 118 Balance 240 118 Intake: Oral 240 118 Other: # Voids 2 Weight 76.657 kg Results 03/28/21 07:27 03/28/21 07:27 Cardiac Enzymes 03/27/21 03/27/21 03/27/21 Range/Units 13:27 13:27 16:31 AST 28 (14-36) U/L Troponin I <0.012 <0.012 (0.000-0.034) ng/mL 03/27/21 Range/Units 19:31 AST (14-36) U/L Troponin I <0.012 (0.000-0.034) ng/mL Coagulation 03/27/21 Range/Units 13:27 PT 10.1 (9.0-12.0) sec APTT 25.5 (22.0-30.0) sec CBC 03/27/21 03/28/21 Range/Units 13:27 07:27 WBC 4.4 4.9 (3.8-10.6) k/uL RBC 3.99 4.49 (3.80-5.40) m/uL Hgb 12.9 14.4 (11.4-16.0) gm/dL Hct 37.6 43.0 (34.0-46.0) % Plt Count 255 314 (150-450) k/uL Comprehensive Metabolic Panel 03/27/21 03/28/21 Range/Units 13:27 07:27 Sodium 128 L 130 L (137-145) mmol/L Potassium 4.6 4.3 (3.5-5.1) mmol/L Chloride 98 98 (98-107) mmol/L Carbon Dioxide 24 26 (22-30) mmol/L BUN 12 8 (7-17) mg/dL Creatinine 0.58 0.49 L (0.52-1.04) mg/dL Glucose 83 112 H (74-99) mg/dL Calcium 9.3 9.9 (8.4-10.2) mg/dL AST 28 (14-36) U/L ALT 22 (4-34) U/L Alkaline Phosphatase 71 (38-126) U/L Total Protein 6.6 (6.3-8.2) g/dL Albumin 4.1 (3.5-5.0) g/dL Current Medications Generic Name Dose Route Start Last Admin Trade Name Freq PRN Reason Stop Dose Admin Albuterol Sulfate 2 puff 03/27/21 16:15 Albuterol Hfa Inhaler INHALATION RT-QID PRN Bronchodilation Ascorbic Acid 1,000 mg 03/28/21 09:00 03/28/21 09:55 Ascorbic Acid 500 Mg Tab PO 1,000 mg DAILY JENS Administration Dexamethasone 6 mg 03/27/21 16:00 03/28/21 09:55 Dexamethasone 2 Mg Tab PO 6 mg DAILY JENS Administration Doxycycline Monohydrate 100 mg 03/27/21 21:00 03/28/21 09:55 Doxycycline 100 Mg Cap PO 100 mg BID JENS Administration Enoxaparin Sodium 40 mg 03/28/21 09:00 03/28/21 10:03 Enoxaparin 40 Mg/0.4 Ml Syringe SQ Not Given DAILY JENS Famotidine 20 mg 03/28/21 09:00 03/28/21 09:55 Famotidine 20 Mg Tab PO 20 mg DAILY JENS Administration Sodium Chloride 1,000 mls @ 50 mls/hr 03/27/21 15:06 03/27/21 16:41 Saline 0.9% IV 03/28/21 11:05 50 mls/hr .Q20H STA Administration Multivitamins 1 each 03/28/21 09:00 03/28/21 09:55 Multivitamins, Thera 1 Each Tab PO 1 each DAILY JENS Administration Naloxone HCl 0.2 mg 03/27/21 14:48 Naloxone 0.4 Mg/Ml 1 Ml Vial IV Q2M PRN Opioid Reversal Zinc Sulfate 220 mg 03/28/21 09:00 03/28/21 09:55 Zinc Sulfate 220 Mg Cap PO 220 mg DAILY JENS Administration Intake and Output 03/27/21 03/28/21 03/28/21 22:59 06:59 14:59 Intake Total 240 118 Balance 240 118 Intake: Oral 240 118 Other: # Voids 2 Weight 76.657 kg 03/28/21 07:27 03/28/21 07:27
--- NOTE | 2021-03-28 11:25 | P.PN ---
Subjective Progress Note Date: 03/28/21 Principal diagnosis: Bradycardia patient continued to be hemodynamic a stable no major events reported by nursing staff patient is currently alert and oriented 4 denying chest pain shortness breath nausea vomiting dumping dizziness lightheaded this or blurry vision. Patient had multiple sinus pauses since admission to the hospital but denying any upper respiratory symptoms stated that she had Kovic likely a week ago when she started having the sinus congestion and currently she is recovering smoothly. Patient is vaccinated with most recent posterior less than 3 month ago. Patient on room air with oxygen saturation 99% in no acute distress. Objective - Vital Signs Vital signs: Vital Signs Temp 97.6 F 03/28/21 08:00 Pulse 72 03/28/21 08:00 Resp 18 03/28/21 08:00 BP 115/70 03/28/21 08:00 Pulse Ox 96 03/28/21 08:00 Intake & Output 03/27/21 03/28/21 03/28/21 18:59 06:59 18:59 Intake Total 240 118 Balance 240 118 Weight 76.657 kg Intake: Oral 240 118 Other: # Voids 2 - Exam Gen.: in stated age, no acute distress Heart: Normal S1-S2 Lungs: Clear to auscultation bilaterally Abdomen: Soft, no tenderness, positive bowel sounds in all 4 quadrant no guarding or rebound Skin: No new rash Psych: Alert and oriented 3 Neuro: No focal deficit - Labs CBC & Chem 7: 03/28/21 07:27 03/28/21 07:27 Labs: Abnormal Lab Results - Last 24 Hours (Table) 03/27/21 03/27/21 03/28/21 Range/Units 13:27 15:22 07:27 Sodium 128 L 130 L (137-145) mmol/L Creatinine 0.49 L (0.52-1.04) mg/dL Glucose 112 H (74-99) mg/dL Coronavirus (PCR) Detected A (Not Detectd) Assessment and Plan Assessment: 1. Symptomatic bradycardia. 2. Positive COVID-19 infection. 3. Acute hyponatremia. 4.hypertension. Next line 5. Hyperlipidemia. Patient currently in sinus rhythm I ordered stat EKG and we will follow-up with cardiology recommendation regarding current management. If patient's continued to be hemodynamically stable we will consider discharge based on cardiology recommendation have patient's follow-up outpatient. If patient's continued to be having sinus pauses and EKG this morning shows third-degree block or Mobitz 2 patient may benefit from permanent pacemaker placement and that will be determined by cardiology. I discussed the details of the bedside in the presence of the nursing staff and patient in agreement. Would continue optimizing risk factors monitor hemodynamic closely repeat blood work in the morning and encourage oral intake. Patient will benefit from ongoing isolation per hospital policy and we will consider close follow-up with primary care physician outpatient. Prognosis remained guarded at this point. CODE STATUS is full
--- NOTE | 2021-03-28 14:00 | ECHOF ---
Referral Reason:bradycardia, covid MEASUREMENTS -------- HEIGHT: 170.2 cm WEIGHT: 76.7 kg BP: 116/67 IVSd: 1.5 cm (0.6 - 1.1) LVIDd: 4.5 cm (3.9 - 5.3) LVPWd: 1.3 cm (0.6 - 1.1) IVSs: 1.9 cm LVIDs: 2.1 cm LVPWs: 1.9 cm LAESV Index (A-L): 73.69 ml/m MV E Juice: 1.03 m/s MV DecT: 329 ms MV A Juice: 0.88 m/s MV E/A Ratio: 1.17 RAP: 5.00 mmHg RVSP: 56.40 mmHg FINDINGS -------- Sinus rhythm. This was a technically adequate study. The left ventricular size is normal. There is moderate concentric left ventricular hypertrophy. O verall left ventricular systolic function is normal with, an EF between 55 - 60 %. The right ventricle is normal in size. LA is severely dilated >40 ml/m2 The right atrial size is normal. Interatrial septal aneurysm. The aortic valve is trileaflet and appears structurally normal. There is mild aortic regurgitation. There is no evidence of aortic stenosis. Severe mitral regurgitation is present , predominately a posteriorly directed jet. Moderate tricuspid regurgitation present. There is moderate to severe pulmonary hypertension. The right ventricular systolic pressure, as measured by Doppler, is 56.40mmHg. There is no pulmonic regurgitation present. The aortic root size is normal. Normal inferior vena cava with normal inspiratory collapse consistent with estimated right atrial pre ssure of 5 mmHg. There is no pericardial effusion. CONCLUSIONS -------- 1. The left ventricular size is normal. 2. There is moderate concentric left ventricular hypertrophy. 3. Overall left ventricular systolic function is normal with, an EF between 55 - 60 %. 4. LA is severely dilated >40 ml/m2 5. Interatrial septal aneurysm. 6. There is mild aortic regurgitation. 7. Severe mitral regurgitation is present. 8. Moderate tricuspid regurgitation present. 9. There is moderate to severe pulmonary hypertension. 10. The right ventricular systolic pressure, as measured by Doppler, is 56.40mmHg. CERTIFIED PESTICIDE APPLICATOR: Chelo Ashley [facility]
[2021-03-29] MEDS: ENOXAPARIN 40 MG/0.4 ML SYRINGE SQ SCH (08:23)
[2021-03-29] MEDS: dexAMETHasone 2 MG TAB PO SCH (09:19)
[2021-03-29] MEDS: FAMOTIDINE 20 MG TAB PO SCH (09:19)
[2021-03-29] MEDS: MULTIVITAMINS, THERA 1 EACH TAB PO SCH (09:19)
[2021-03-29] MEDS: DOXYCYCLINE 100 MG CAP PO SCH (09:19)
[2021-03-29] MEDS: ZINC SULFATE 220 MG CAP PO SCH (09:19)
[2021-03-29] MEDS: ASCORBIC ACID 500 MG TAB PO SCH (09:19)
[2021-03-29 09:27] VITALS: BP 127/64; PULSE 64; RESP 18; TEMP 97.6
--- NOTE | 2021-03-29 09:27 | P.PN ---
Subjective Progress Note Date: 03/29/21 History of Presenting Illness: Patient is a very pleasant 66-year-old female with a past medical history of hypertension, basal cell carcinoma, mitral valve prolapse, and pulmonary hype rtension. She presented to the hospital on 03/27/21 with a chief complaint of abnormal EKG findings. Patient was reportedly being seen by her PCP for follow- up appointment secondary to enlarged lymph node. In the office, patient underwent testing for reports of cold-like symptoms and was found to be Covid positive and an EKG was completed revealing sinus bradycardia with cardiac pauses. Patient was sent to ER for further evaluation and a full cardiac workup. In the emergency department, EKG revealing sinus bradycardia at 56 bpm . Repeat EKG revealing sinus bradycardia at 59 bpm with cardiac pauses. And last EKG completed revealing normal sinus rhythm at 65 bpm. Labs unremarkable with the exception of mild hyponatremia with sodium of 130.. Troponin negative x3. Patient was admitted under internal medicine team and we were consulted for further evaluation of bradycardia and sinus pauses. Patient was seen and fully evaluated at the bedside. At time of assessment patient reports that she is asymptomatic to sinus bradycardia and reports long-standing history of bradycardia. Patient reports that she has a home blood pressure cuff and pulse oximeter and states that she has noted her heart rate to be in the 40s on multiple previous occasions over the years, but states she always thought the machine was just reading at wrong because she never felt any adverse effects. Patient denies experiencing any headache, lightheadedness, dizziness, changes in her vision or hearing, chest pain or palpitations, shortness of breath, dyspnea with exertion, or experiencing any numbness/tingling/weakness in her extremities. She does follow in the office with Dr. Palacio for evaluation of her mitral valve prolapse. Previous echocardiogram completed in 2018 revealed an EF of 50% with moderate biatrial enlargement, basal septal hypertrophy, hyperdynamic intra-atrial septum and thickened mitral valve with evidence of mitral valve prolapse, and moderate pulmonary hypertension. PHYSICAL EXAM: Thorough physical exam not completed secondary to limited evaluation/examination due to Covid19 Cardiovascular: Regular rate and rhythm, systolic murmur present, no gallops or rubs. No lower extremity edema, right ankle larger than left secondary to previous surgery. ASSESSMENT: Asymptomatic Sinus bradycardia with frequent cardiac pauses Moderate to severe pulmonary hypertension Interatrial septal aneurysm Covid 19 virus infection Hypertension Mitral valve prolapse Pulmonary hypertension Basal cell carcinoma PLAN: Management of Covid 19 virus infection per primary admitting internal medicine team. Echocardiogram revealed a normal EF of 55-60%, severely dilated left atrium and an interatrial septal aneurysm with moderate to severe pulmonary hypertension. Continue DVT prophylaxis with Lovenox Further recommendations pending patient course TSH 0.340 and free T4 1.60 Patient requesting discharge at this time, patient was cleared by cardiology for asymptomatic bradycardia and educated on the importance of following up outpatient in office with Dr. Palacio. No further recommendations from cardiology at this time, may be cleared from cardiac perspective for discharge home. Thank you for allowing us to participate in the care of this pleasant patient. Do not hesitate to contact us with questions. Nurse practitioner note has been reviewed by physician. Signing provider agrees with the documented findings, assessment, and plan of care. Objective - Vital Signs Vital signs: Vital Signs Temp 97.6 F 03/29/21 08:00 Pulse 64 03/29/21 08:00 Resp 18 03/29/21 08:00 BP 127/64 03/29/21 08:00 Pulse Ox 97 03/29/21 08:00 Intake & Output 03/28/21 03/29/21 03/29/21 18:59 06:59 18:59 Intake Total 118 118 Balance 118 118 Intake: Oral 118 118 Other: # Voids 2 1 - Labs CBC & Chem 7: 03/28/21 07:27 03/28/21 07:27 Labs: Abnormal Lab Results - Last 24 Hours (Table) 03/28/21 Range/Units 07:27 TSH 0.340 L (0.465-4.680) mIU/L
--- NOTE | 2021-03-29 10:38 | P.DS ---
Providers Date of admission: 03/27/21 14:48 Attending physician: Micheal Choi Consults: 03/27/21 14:50 Consult Physician Urgent Consulting Provider: [facility] Consult Reason/Comments: acute bradycardia, sinus pause Do you want consulting provider notified?: Already Contacted Primary care physician: Micheal Choi Hospital Course: 66 years OLD female with past medical history significant for hypertension and hyperlipidemia resented to the hospital with weakness. Patient was positive for bradycardia and positive for COVID-19 and admitted for further evaluation. During the hospital course bradycardia resolved completely and evaluated by cardiology who recommended conservative management at this point and close follow-up outpatient with her primary care physician with possible ischemic workup in the future on outpatient basis. The etiology felt to be related to COVID-19 infection but patient is vaccinated with posterior and had mild disease without up R or lower respiratory symptoms felt stable from the medical standpoint for discharge after evaluation by cardiology and clearance and patient was discharged in stable condition to follow-up with her primary care physician on or Tuesday. On concerns addressed at the bedside in the presence of nursing staff and patient was discharged in stable condition Patient Condition at Discharge: Stable Plan - Discharge Summary Discharge Rx Participant: No New Discharge Prescriptions: No Action Multivit-Min/Iron/Folic/Lutein [Centrum Silver Women Tablet] 1 tab PO DAILY Ascorbic Acid [Vitamin C] 1,000 mg PO DAILY hydroCHLOROthiazide 25 mg PO Q48H Retinavites Supplement 1 tab PO DAILY Doxycycline [Vibramycin] 100 mg PO BID Discharge Medication List Ascorbic Acid [Vitamin C] 1,000 mg PO DAILY 11/29/17 [History] Multivit-Min/Iron/Folic/Lutein [Centrum Silver Women Tablet] 1 tab PO DAILY 11/29/17 [History] Retinavites Supplement 1 tab PO DAILY 11/29/17 [History] hydroCHLOROthiazide 25 mg PO Q48H 11/29/17 [History] Doxycycline [Vibramycin] 100 mg PO BID 03/27/21 [History] Follow up Appointment(s)/Referral(s): Micheal Choi MD [Primary Care Provider] - 1-2 days
== END 2021-03-29 12:44 | disposition home or self-care (01) | DRG 308 ==
LOC: EC 12:15 → 3SCARD 14:48
PROVIDERS: ADMIT Internal Medicine Geriatric Medicine; ATTEND Internal Medicine Geriatric Medicine
DX: R00.1 Bradycardia, unspecified (principal); U07.1 COVID-19; E87.1 Hypo-osmolality and hyponatremia; I49.5 Sick sinus syndrome; I44.1 Atrioventricular block, second degree; E78.5 Hyperlipidemia, unspecified; I08.3 Combined rheumatic disorders of mitral, aortic and tricuspid valves; I10 Essential (primary) hypertension; I27.20 Pulmonary hypertension, unspecified; I34.1 Nonrheumatic mitral (valve) prolapse; J40 Bronchitis, not specified as acute or chronic; Z80.52 Family history of malignant neoplasm of bladder; Z80.6 Family history of leukemia; Z82.49 Family history of ischemic heart disease and other diseases of the circulatory system; Z82.5 Family history of asthma and other chronic lower respiratory diseases; Z85.828 Personal history of other malignant neoplasm of skin; Z87.19 Personal history of other diseases of the digestive system; Z87.891 Personal history of nicotine dependence
CPT/HCPCS: 36415; 71046; 80048; 80053; 83735; 84439; 84443; 84484; 85025; 85610; 85730; 87635; 93005; 93306; 99285

== ENCOUNTER → 2022-01-14 | Outpatient (CLI) | payer MEDICARE, BC ==
--- NOTE | 2022-01-15 08:29 | MM ---
Reason for Exam: Screening (asymptomatic). Last mammogram was performed 1 year(s) and 1 month(s) ago. Patient History: Menarche at age 14. First Full-Term at age 21. Postmenopausal. Other cancer. Hormonal Contraceptives for 5 years from age 21 until age 30. Maternal cousin had breast cancer. Maternal aunt had breast cancer, age 70. Risk Values: Crystal 5 year model risk: 1.5%. NCI Lifetime model risk: 5.6%. Prior Study Comparison: 09/20/2019 Bilateral Screening Mammogram, [facility]. 09/28/2019 Right Diagnostic Mammogram, [facility]. 12/15/2020 Bilateral Screening Mammogram, [facility]. Tissue Density: The breast tissue is heterogeneously dense. This may lower the sensitivity of mammography. Findings: Analyzed By CAD. There is no suspicious group of microcalcifications or new suspicious mass in either breast. Overall Assessment: Benign, BI-RAD 2 Management: Screening Mammogram of both breasts in 1 year. A clinical breast exam by your physician is recommended on an annual basis and results should be correlated with mammographic findings. Electronically signed and approved by: Ramon Glynn M.D. Radiologis
== END | disposition home or self-care (01) ==
LOC: RADMAMWWP 14:50
PROVIDERS: ATTEND Internal Medicine Geriatric Medicine
DX: Z12.31 Encounter for screening mammogram for malignant neoplasm of breast (principal); Z78.0 Asymptomatic menopausal state; Z80.3 Family history of malignant neoplasm of breast
CPT/HCPCS: 77063; 77067

== ENCOUNTER 2022-12-21 07:44 | Day surgery (SDC) | payer MEDICARE, BC ==
[2022-12-20 09:45] VITALS: BMI 29.0
[2022-12-21] MEDS ORDERED: SODIUM CHLORIDE 0.9% 500 ML 500 ML IV ONE (08:04)
[2022-12-21 08:17] VITALS: TEMP 97.9
[2022-12-21] MEDS ORDERED: fentaNYL (PF) 50 MCG/ML 2 ML AMP ONE (09:44)
[2022-12-21] MEDS ORDERED: BENZOCAINE SPRAY 1 CAN TOPICAL ONE ×2 (09:55→10:00)
[2022-12-21] MEDS ORDERED: MIDAZOLAM 2 MG/2 ML VIAL IVP ONE (10:00)
[2022-12-21] MEDS ORDERED: fentaNYL (PF) 50 MCG/ML 2 ML AMP IVP ONE (10:00)
[2022-12-21 10:16] VITALS: RESP 16
[2022-12-21 11:58] VITALS: BP 110/68; PULSE 62
--- NOTE | 2022-12-21 21:25 | P.TEE ---
Date of Procedure: 12/21/22 Description of Procedure(s): Procedure performed: 1. Transesophageal Echocardiogram with color flow doppler, pulsed wave doppler and continuous wave doppler 2. Moderate conscious sedation. Sedation time 15 mins. 3. Bubble Study Indications: m severe mitral regurgitation Consent: I have discussed the risks, benefits and alternative therapies for the above-mentioned procedure. The patient has indicated understanding and acceptance of the risks of the procedure. Signed consent was obtained and was placed in the paper chart. Procedural Steps: Timeout was performed in usual fashion. Patient's heart rate, blood pressure, oxygen saturation and ECG were monitored. Benzocaine was sprayed liberally in the back of the throat. Bite block was placed between the jaw. 2 mg of Versed and 50 mcg of Fentanyl were administered intravenously. After achieving appropriate moderate conscious sedation, CALEB probe was advanced without difficulty and without any immediate complications to the esophagus. CALEB study was performed with color flow doppler, pulsed wave doppler and continuous wave doppler. Agitated saline bubbles were injected to assess for any intra- atrial shunt. The probe was then removed. Patient tolerated the procedure well. Patient was transferred to the post procedure area in stable and satisfactory condition. Throughout the procedure patient's heart rate, blood pressure, oxygen saturation and ECG were monitored. Total sedation time 15 mins. Complications: none FINDINGS Left Atrium: Moderately dilated left atrium. No evidence of mass or thrombus seen Left Atrial Appendage: No evidence of thrombus or mass seen in PREM Inter atrial septum: Intact inter-atrial septum with no evidence of atrial septal defect or patent foramen ovale. Left Ventricle: Normal global LV size and systolic function Right Atrium: Normal overall RV size Right Ventricle: Normal global RV size and systolic function Aortic Valve: Mild thickening of aortic valve leaflets, trileaflet, mild AI Mitral Valve: Prolapsing posterior leaflet with Fibroelastic deficiency, suggestive Gupta's disease. Severe MR Pulmonic Valve: Not well visualized. Tricuspid Valve: Not well visualized. Mild tricuspid regurgitation Ascending aorta, Aortic root and Aortic arch: Aortic root measuring at 3.7 cm. Ascending aorta measuring at 3.3 cm. distal ascending aorta measuring at 4 cm. CONCLUSION: Severe primary mitral regurgitation due to prolapsing posterior leaflet Mild AI Thickened anterior leaflet of mitral valve and thickened leaflets of aortic valve. Anatomy suggestive of Gupta's disease Dilated ascending aortic root measuring 4 cm Consult cardiothoracic surgery team
== END 2022-12-21 11:51 | disposition home or self-care (01) ==
LOC: CATHCVL 07:44
PROVIDERS: ATTEND Student in an Organized Health Care Education/Training Program
DX: I34.0 Nonrheumatic mitral (valve) insufficiency (principal); I10 Essential (primary) hypertension; Z79.899 Other long term (current) drug therapy
CPT/HCPCS: 93312; 93320; 93325; J2250; J3010

== ENCOUNTER → 2022-12-28 | Outpatient (CLI) | payer MEDICARE, BC ==
--- NOTE | 2022-12-28 17:08 | P.SLEEP ---
History of Present Illness H&P Date: 12/28/22 This is a 67-year-old female patient was bending due to concerns of separate sleep apnea. The patient has loud snoring and she has been told to quit breathing by her family members. In fact, she was on a trip to [place] and she was sleeping next to her sister and she was told to quit breathing. Nevertheless, the patient is not aware of her snoring and she is not aware of any sleep fragmentation. She states between midnight and 7 AM in the morning. She wakes up refreshed. No hypersomnia or sleepiness during the day. No tiredness. No fatigue. She is able to drive her car without having to fall asleep. No grinding of the teeth. No sleepwalking. No dry mouth. No gasping for air overnight. No Restasis and lower extremities. No daytime fatigue. No issues with memory or concentration. The current Mccool score is at 2. She is known to have hypertension. No other medical problems. Review of Systems Constitutional: Reports as per HPI Eyes: denies as per HPI, denies blurred vision, denies bulging eye, denies d ecreased vision, denies diplopia, denies discharge, denies dry eye, denies irritation, denies itching, denies pain, denies photophobia, denies loss of peripheral vision, denies loss of vision, denies tunnel vision/blind spots Ears: deny: decreased hearing, ear discharge, earache, tinnitus Ears, nose, mouth and throat: Reports as per HPI Breasts: absent: as per HPI, change in shape, gynecomastia, masses, nipple discharge, pain, skin changes, swelling Cardiovascular: Reports as per HPI Respiratory: Reports snoring Gastrointestinal: Reports as per HPI Genitourinary: Reports as per HPI Menstruation: Reports as per HPI Musculoskeletal: Reports as per HPI Musculoskeletal: absent: ankle pain, ankle stiffness, ankle swelling, as per HPI, elbow pain, elbow stiffness, elbow swelling, foot pain, foot stiffness, foot swelling, hand pain, hand stiffness, hand swelling, hip pain, hip stiffness, hip swelling, knee pain, knee stiffness, knee swelling, shoulder pain, shoulder stiffness, shoulder swelling, wrist pain, wrist stiffness, wrist swelling Integumentary: Reports as per HPI Neurological: Reports as per HPI Psychiatric: Reports as per HPI Endocrine: Reports as per HPI Past Medical History Past Medical History: Cancer, Eye Disorder, Hypertension, Osteoarthritis (OA) Additional Past Medical History / Comment(s): See Cardiology H&P. Varicose veins, basal cell skin CA, hx. colon polyps, heart rate runs low, leaky valve. Due to have Sleep Study. Start of macular degeneration. History of Any Multi-Drug Resistant Organisms: None Reported Past Surgical History: Cholecystectomy, Heart Catheterization, Orthopedic Surgery, Tubal Ligation Additional Past Surgical History / Comment(s): club foot surg as ,basal cell removed-Moh's procedure, right foot surg. Past Anesthesia/Blood Transfusion Reactions: No Reported Reaction, Motion Sickness Past Psychological History: No Psychological Hx Reported Smoking Status: Never smoker Past Alcohol Use History: Occasional Additional Past Alcohol Use History / Comment(s): Pt started smoking in 1972 and quit in 1996. She drinks up to 7 beers a week. Past Drug Use History: Marijuana Additional Drug Use History / Comment(s): Occasional marijuana use. Aware no use 24 hrs prior to procedure. - Past Family History Mother Family Medical History: No Reported History Additional Family Medical History / Comment(s): Mother is . She was a smoker. She had emphysema. Father Family Medical History: Cancer Additional Family Medical History / Comment(s): Bladder cancer, leukemia. Brother(s) Family Medical History: Cancer Additional Family Medical History / Comment(s): Prostate cancer. Medications and Allergies Home Medications Medication Instructions Recorded Confirmed Type Multivit-Min/Iron/Folic/Lutein 1 tab PO DAILY 11/29/17 12/20/22 History [Centrum Silver Women Tablet] Ascorbic Acid [Vitamin C] 500 mg PO DAILY 12/20/22 12/20/22 History Cholecalciferol [Vitamin D3 (25 25 mcg PO DAILY 12/20/22 12/20/22 History Mcg = 1000 Iu)] Elderberry (Unknown Dose) 1 tab PO DIRECTED PRN 12/20/22 12/20/22 History Eye Vitamin 1 tab PO DAILY 12/20/22 12/20/22 History Losartan [Cozaar] 25 mg PO DAILY 12/20/22 12/20/22 History Allergies Allergy/AdvReac Type Severity Reaction Status Date / Time No Known Allergies Allergy Verified 12/20/22 09:10 Physical Exam BP is 129/79, pulse is 66, respirations 16, temperature is 98.2, body mass index is 30, weight is 184, Mccool score is at 2, pulse ox is 94% on room air oxygen. The patient appeared well nourished and normally developed. Vital signs as documented. Head exam is unremarkable. No scleral icterus or corneal arcus noted. Neck is without jugular venous distension, thyromegaly, or carotid bruits. Carotid upstrokes are brisk bilaterally. Lungs are clear to auscultation and percussion. Cardiac exam reveals the PMI to be normally sized and situated. Rhythm is regular. First and second heart sounds normal. No murmurs, rubs or gallops. Abdominal exam reveals normal bowel sounds, no masses, no organomegaly and no aortic enlargement. Extremities are nonedematous and both femoral and pedal pulses are normal.Examination of the skin revealed no evidence of significant rashes, suspicious appearing nevi or other concerning lesions.Neurologically, the patient is awake and alert and the patient does not have any focal neurological deficit. Cranial nerves are essentially intact. Assessment and Plan Plan: Snoring, with low likelihood of obstructive sleep apnea as the patient does not have any major fatigue or tiredness or sleepiness and no other features to indicate a significant obstructive sleep apnea History of macular degeneration History of hypertension which is adequately controlled for now History of skin cancer History of colonic polyps Plan Low likelihood for obstructive sleep apnea. Avoid oncology can RTC hours prior to going to bed. Sleep on the side of the head of the bed elevated. We'll do a home sleep study to rule out the possibility of obstructive sleep apnea. Sleep Note - Sleep Note Sleep Note: Temperature: Pulse Rate: Respiratory Rate: Blood Pressure: SpO2: Height: Weight: BMI: Neck Circumference:
== END ==
LOC: 3 N SLEEP 13:25
PROVIDERS: ATTEND Internal Medicine Critical Care Medicine
DX: R06.83 Snoring (principal); I10 Essential (primary) hypertension; H35.30 Unspecified macular degeneration; M19.90 Unspecified osteoarthritis, unspecified site; Z85.820 Personal history of malignant melanoma of skin; Z86.010 Personal history of colon polyps; Z79.899 Other long term (current) drug therapy; Z87.891 Personal history of nicotine dependence
CPT/HCPCS: 99211

== ENCOUNTER → 2023-01-12 | Outpatient (CLI) | payer MEDICARE, BC | LOC: 3 N SLEEP 10:58 | PROVIDERS: ATTEND Internal Medicine Critical Care Medicine | DX: G47.33 Obstructive sleep apnea (adult) (pediatric) (principal); Z87.891 Personal history of nicotine dependence ==

== ENCOUNTER → 2023-02-09 | Outpatient (CLI) | payer MEDICARE, BC ==
--- NOTE | 2023-02-10 07:54 | BD ---
EXAMINATION TYPE: Axial Bone Density DATE OF EXAM: 02/09/2023 CLINICAL HISTORY: 67 years old Female. ICD-10 CODE: M81.0 AGE-RELATED OSTEOPOROSIS Height: 64.5 in Weight: 182 lbs FRAX RISK QUESTIONS: History of Fracture in Adulthood: rt foot fx age 36 RISK FACTORS HISTORY OF: Active: yes Postmenopausal woman: age 54 MEDICATIONS: Additional Medications: vit d, heart meds, multi vitamins, vit c, elderberry, eye vitamin EXAM MEASUREMENTS: Bone mineral densitometry was performed using the [employer] System. Bone mineral density as measured about the Lumbar spine is: ----- L1-L4(G/cm2): 1.385 T Score Values are as follows: ----- L1: 0.5 ----- L2: 0.7 ----- L3: 1.9 ----- L4: 3.4 ----- L1-L4: 1.7 Z Score Values are as follows: ----- L1: 1.5 ----- L2: 1.7 ----- L3: 3.0 ----- L4: 4.4 ----- L1-L4: 2.7 Bone mineral density has: Increased 0.7% since study of: 01/28/2021 Bone mineral density about the R hip (g/cm2): 0.901 Bone mineral density about the L hip (g/cm2): 0.978 T Score values are as follows: -----R Neck: -0.9 -----L Neck: -0.8 -----R Total: -0.8 -----L Total: -0.2 Z Score values are as follows: -----R Neck: 0.2 -----L Neck: 0.3 -----R Total: 0.0 -----L Total: 0.6 Bone mineral density has: Increased 0.8% since study of: 01/28/2021 FRAX%s: The graph provided illustrates a 13.0% chance for a major osteoporotic fx and a 1.0% chance f or the hips probability for fx in 10 years time. IMPRESSION: Normal (Values between +1 and -1 indicate normal bone mass). Consider repeating this study in 5 year s or sooner if there is some new clinical indication. NOTE: T-SCORE=SD OF THE YOUNG ADULT MEAN.
--- NOTE | 2023-02-10 08:21 | MM ---
Reason for Exam: Screening (asymptomatic). Last mammogram was performed 1 year(s) and 1 month(s) ago. Patient History: Menarche at age 14. First Full-Term at age 21. Postmenopausal. Other cancer. Hormonal Contraceptives for 5 years from age 21 until age 30. Maternal cousin had breast cancer. Maternal aunt had breast cancer, age 70. Risk Values: Crystal 5 year model risk: 1.5%. NCI Lifetime model risk: 5.4%. Prior Study Comparison: 09/28/2019 Right Diagnostic Mammogram, [facility]. 12/15/2020 Bilateral Screening Mammogram, [facility]. 01/14/2022 Bilateral MG 3D screening mammo w/cad, [facility]. Tissue Density: The breast tissue is heterogeneously dense. This may lower the sensitivity of mammography. Findings: Analyzed By CAD. There is no suspicious group of microcalcifications or new suspicious mass in either breast. Overall Assessment: Benign, BI-RAD 2 Management: Screening Mammogram of both breasts in 1 year. . Patient should continue monthly self-breast exams. A clinical breast exam by your physician is recommended on an annual basis. This exam should not preclude additional follow-up of suspicious palpable abnormalities. Note on Crystal scores and lifetime risk: 1. A Crystal score greater than 3% is considered moderate risk. If this is the case, consider specialist referral to assess eligibility for a risk reducing agent. 2. If overall lifetime risk for the development of breast cancer is 20% or higher, the patient may qualify for future screening with alternating mammogram and breast MRI. Electronically signed and approved by: Ramon Glynn M.D. Radiologis
== END | disposition home or self-care (01) ==
LOC: RADMAMWWP 11:53
PROVIDERS: ATTEND Internal Medicine Geriatric Medicine
DX: Z12.31 Encounter for screening mammogram for malignant neoplasm of breast (principal); M81.0 Age-related osteoporosis without current pathological fracture; Z78.0 Asymptomatic menopausal state; Z80.3 Family history of malignant neoplasm of breast
CPT/HCPCS: 77063; 77067; 77080

== ENCOUNTER 2023-03-08 19:38 | Outpatient (CLI) | payer MEDICARE, BC ==
--- NOTE | 2023-03-20 23:32 | SLS ---
SLEEP STUDY This is a CPAP titration study. HISTORY OF PRESENT ILLNESS: This patient is 67, diagnosed having severe symptomatic obstructive sleep apnea based on a sleep study that was done on 01/24/2023. The patient is coming in for a CPAP titration. PERTINENT PHYSICAL FINDINGS: Height is 5 feet 5 inches weight is 184 and a body mass index of 30.6. TECHNICAL DESCRIPTION: The sleep evaluation of the patient consisted of clinical polysomnography, nocturnal respiratory battery, left and right anterior tibialis surface electromyography. The standard montage for the clinical polysomnography included the EEG, EOG, EMG, and EKG. Respiratory battery included measurements of nasal/buccal airflow, thoracic, and/or abdominal effort and intercostal surface EMG. Nocturnal oxyhemoglobin saturations were obtained by finger oximetry. Digital video and audio monitoring were done throughout the entire night to check or parasomnias. Step-savage titration with positive airway pressure was utilized during the study to control the respiratory events. SLEEP ARCHITECTURE: Total time in bed was 387.5 minutes. Total sleep time was 322.5 minutes and the sleep efficiency was calculated to be at 83.2%. The wake after sleep onset time was 47 minutes. Latency to sleep onset was 10.5 minutes. Latency to REM sleep was 79 minutes. The sleep architecture was characterized by 3.7% stage I, 53.8% stage II, 17.5% stage III, and 25.0% REM sleep. The total arousal index was 4.7. SLEEP CONTINUITY SUMMARY: The patient had a total of 25 arousals with an index of 4.7. The respiratory arousal index was 0.7. RESPIRATORY ANALYSIS: The patient was subjected to CPAP titration. The patient was started on CPAP therapy initially at a pressure of 4 cm of water and the pressure was gradually increased by increments of 4 cm to reach a maximum CPAP pressure of 15 cm of water. Careful review of the CPAP titration was done taking into account the patient's sleep stage and body position. Note that at pressures of 14 and 15 cm, the patient had adequate control of the obstructive respiratory events at various body positions and at various sleep stages including REM sleep. No significant desaturations were encountered. This was a successful CPAP titration. PERIODIC LIMB MOVEMENT SUMMARY: The patient had a total of 168 periodic limb movement activity with an index of 31.0. CARDIAC SUMMARY: Average heart rate was 59, minimum heart rate 54, maximum heart rate was 65. ASSESSMENT: Severe symptomatic obstructive sleep apnea with an AHI of 60. The patient underwent a successful CPAP titration. All sleep stages were encountered and the patient was studied also in various body positions. PLAN: 1. Encourage weight loss. 2. Optimize sleep hygiene measures. 3. Maintain regular sleep schedule. 4. Proceed with CPAP therapy. The patient will be started at a CPAP pressure of 14 cm of water with a C-flex of 3. The patient will be given a full-face mask. I prefer to start her on an AirFit F20 full-face mask, medium size. The patient will see me back in the office in 30 to 90 days to assess clinical response and compliancy. MMODL / IJN: [id number] /
== END 2023-03-09 05:20 | disposition home or self-care (01) ==
LOC: 3 N SLEEP 19:38
PROVIDERS: ATTEND Internal Medicine Critical Care Medicine
DX: G47.33 Obstructive sleep apnea (adult) (pediatric) (principal); G47.61 Periodic limb movement disorder; F12.90 Cannabis use, unspecified, uncomplicated; Z87.891 Personal history of nicotine dependence
CPT/HCPCS: 95811

== ENCOUNTER 2023-04-28 15:08 | Inpatient (IN) | payer MEDICARE, BC ==
--- NOTE | 2023-04-28 16:18 | ED ---
Neuro HPI - General Chief Complaint: Neuro Symptoms/Deficit Stated Complaint: chest pain Time Seen by Provider: 04/28/23 15:42 Source: patient, EMS Mode of arrival: EMS Limitations: no limitations - History of Present Illness Is the patient presenting with stroke symptoms?: Yes Last Known Well Date: 04/28/23 Last Known Well Time: 13:40 -: hour(s) Initial Comments: This patient is a 68-year-old woman who presents to have evaluation for a constellation of symptoms that developed approximately 1:40 PM today. The patient does note that she had some right I visual disturbance last night, she states that at the right periphery of her vision she was seeing some blurry lights. I then did resolve. The patient states that today she had numbness starting distal to the right buttock and down to the right leg it then was involving the right arm as well. The patient also felt that the periphery of her right vision was not normal. EMS was activated and the patient on arrival only has a little bit of residual right hand symptoms she states it doesn't exactly feel weak and just feels off. There is no headache. No chest pain. Patient's recent history is notable for having mitral valve replacement at [facility], Dr. Jimbo King. She was released from hospital last night. Location: right arm, right leg History of same: No Place: home Quality: numb Worsens With: none On Anticoagulants: No Context: sudden onset Treatments Prior to Arrival: none - Related Data Home Medications: Home Medications Medication Instructions Recorded Confirmed Multivit-Min/Iron/Folic/Lutein 1 tab PO DAILY 11/29/17 04/28/23 [Centrum Silver Women Tablet] Cholecalciferol [Vitamin D3 (25 25 mcg PO DAILY 12/20/22 04/28/23 Mcg = 1000 Iu)] Acetaminophen [Tylenol] 650 mg PO Q4H PRN 04/28/23 04/28/23 Aspirin 81 mg PO DAILY 04/28/23 04/28/23 Cyclobenzaprine [Flexeril] 5 mg PO TID PRN 04/28/23 04/28/23 Ferrous Sulfate [Iron (65 MG 325 mg PO DAILY 04/28/23 04/28/23 Elemental)] Vit C/E/Zn/Coppr/Lutein/Zeaxan 1 cap PO DAILY 02/29/24 02/29/24 [Preservision Areds 2 Softgel] Previous Rx's Medication Instructions Recorded Atorvastatin [Lipitor] 40 mg PO HS #30 tablet 04/30/23 Clopidogrel [Plavix] 75 mg PO DAILY #30 tab 04/30/23 Allergies/Adverse Reactions: Allergies Allergy/AdvReac Type Severity Reaction Status Date / Time No Known Allergies Allergy Verified 04/28/23 17:43 Review of Systems ROS Statement: Those systems with pertinent positive or pertinent negative responses have been documented in the HPI. ROS Other: All systems not noted in ROS Statement are negative. Constitutional: Denies: fever, chills, weakness Eyes: Reports: vision change ENT: Denies: hearing loss Respiratory: Denies: cough, dyspnea Cardiovascular: Denies: chest pain, palpitations, edema Gastrointestinal: Denies: abdominal pain, nausea, vomiting, diarrhea Genitourinary: Denies: dysuria, hematuria Musculoskeletal: Denies: back pain Skin: Denies: rash, lesions Neurological: Reports: numbness. Denies: headache, weakness, confusion, abnormal gait Hematological/Lymphatic: Denies: easy bleeding General Exam Limitations: no limitations General appearance: alert, in no apparent distress Head exam: Present: atraumatic, normocephalic Eye exam: Present: normal appearance. Absent: scleral icterus, conjunctival injection ENT exam: Present: normal oropharynx Neck exam: Present: normal inspection, full ROM Respiratory exam: Present: normal lung sounds bilaterally. Absent: respiratory distress, wheezes, rales, rhonchi, stridor, accessory muscle use Cardiovascular Exam: Present: regular rate, normal rhythm, normal heart sounds. Absent: systolic murmur, diastolic murmur, rubs, gallop GI/Abdominal exam: Present: soft. Absent: distended, tenderness, guarding, rebound, rigid, mass Extremities exam: Present: normal inspection, normal capillary refill. Absent: pedal edema, calf tenderness Back exam: Present: normal inspection Neurological exam: Present: alert, oriented X3, CN II-XII intact. Absent: motor sensory deficit Skin exam: Present: warm, dry, intact, normal color. Absent: rash Stroke MDM - Lab Data Result diagrams: 04/29/23 07:57 04/29/23 07:57 Lab Results 04/28/23 04/28/23 04/28/23 Range/Units 16:16 16:16 16:16 WBC 7.4 (3.8-10.6) k/uL RBC 3.24 L (3.80-5.40) m/uL Hgb 10.6 L (11.4-16.0) gm/dL Hct 31.3 L (34.0-46.0) % MCV 96.5 (80.0-100.0) fL MCH 32.8 (25.0-35.0) pg MCHC 34.0 (31.0-37.0) g/dL RDW 12.7 (11.5-15.5) % Plt Count 505 H (150-450) k/uL MPV 7.6 Neutrophils % 77 % Lymphocytes % 12 % Monocytes % 5 % Eosinophils % 5 % Basophils % 0 % Neutrophils # 5.7 (1.3-7.7) k/uL Lymphocytes # 0.9 L (1.0-4.8) k/uL Monocytes # 0.4 (0-1.0) k/uL Eosinophils # 0.4 (0-0.7) k/uL Basophils # 0.0 (0-0.2) k/uL PT 10.0 (10.0-12.5) sec INR 0.9 (<1.2) APTT 22.3 (22.0-30.0) sec Sodium 136 L (137-145) mmol/L Potassium 4.5 (3.5-5.1) mmol/L Chloride 105 (98-107) mmol/L Carbon Dioxide 22 (22-30) mmol/L Anion Gap 9 mmol/L BUN 12 (7-17) mg/dL Creatinine 0.54 (0.52-1.04) mg/dL Est GFR (CKD-EPI)AfAm >90 (>60 ml/min/1.73 sqM) Est GFR (CKD-EPI)NonAf >90 (>60 ml/min/1.73 sqM) Glucose 116 H (74-99) mg/dL Calcium 9.1 (8.4-10.2) mg/dL Total Bilirubin 0.3 (0.2-1.3) mg/dL AST 79 H (14-36) U/L ALT 197 H (4-34) U/L Alkaline Phosphatase 117 (38-126) U/L Creatine Kinase 50 (30-135) U/L Troponin I (0.000-0.034) ng/mL Total Protein 6.1 L (6.3-8.2) g/dL Albumin 3.6 (3.5-5.0) g/dL Triglycerides (0.00-149.00) mg/dL Cholesterol (0.00-200.00) mg/dL LDL Cholesterol, Calc (0.0-131.0) mg/dL VLDL Cholesterol, Calc (5.00-40.00) mg/dL HDL Cholesterol (40.00-60.00) mg/dL Cholesterol/HDL Ratio Ratio 04/28/23 04/28/23 Range/Units 16:16 16:16 WBC (3.8-10.6) k/uL RBC (3.80-5.40) m/uL Hgb (11.4-16.0) gm/dL Hct (34.0-46.0) % MCV (80.0-100.0) fL MCH (25.0-35.0) pg MCHC (31.0-37.0) g/dL RDW (11.5-15.5) % Plt Count (150-450) k/uL MPV Neutrophils % % Lymphocytes % % Monocytes % % Eosinophils % % Basophils % % Neutrophils # (1.3-7.7) k/uL Lymphocytes # (1.0-4.8) k/uL Monocytes # (0-1.0) k/uL Eosinophils # (0-0.7) k/uL Basophils # (0-0.2) k/uL PT (10.0-12.5) sec INR (<1.2) APTT (22.0-30.0) sec Sodium (137-145) mmol/L Potassium (3.5-5.1) mmol/L Chloride (98-107) mmol/L Carbon Dioxide (22-30) mmol/L Anion Gap mmol/L BUN (7-17) mg/dL Creatinine (0.52-1.04) mg/dL Est GFR (CKD-EPI)AfAm (>60 ml/min/1.73 sqM) Est GFR (CKD-EPI)NonAf (>60 ml/min/1.73 sqM) Glucose (74-99) mg/dL Calcium (8.4-10.2) mg/dL Total Bilirubin (0.2-1.3) mg/dL AST (14-36) U/L ALT (4-34) U/L Alkaline Phosphatase (38-126) U/L Creatine Kinase (30-135) U/L Troponin I 0.098 H* (0.000-0.034) ng/mL Total Protein (6.3-8.2) g/dL Albumin (3.5-5.0) g/dL Triglycerides 98.20 (0.00-149.00) mg/dL Cholesterol 202.00 H (0.00-200.00) mg/dL LDL Cholesterol, Calc 128.0 (0.0-131.0) mg/dL VLDL Cholesterol, Calc 19.64 (5.00-40.00) mg/dL HDL Cholesterol 54.40 (40.00-60.00) mg/dL Cholesterol/HDL Ratio 3.71 Ratio - NIH Stroke Scale 1a. Level of Consciousness: (0) alert 1b. LOC Questions: (0) answers correctly 1c. LOC Commands: (0) performs tasks correctly 2. Best Gaze: (0) normal 3. Visual: (0) no visual loss 4. Facial Palsy: (0) normal symmetrical movement 5a. Motor Arm Left: (0) no drift 5b. Motor Arm Right: (0) no drift 6a. Motor Leg Left: (0) no drift 6b. Motor Leg Right: (0) no drift 7. Limb Ataxia: (0) absent 8. Sensory: (0) normal 9. Best Language: (0) no aphasia 10. Dysarthria: (0) normal 11. Extinction/Inattention: (0) no abnormality - Medical Decision Making Patient is 68-year-old woman presenting with symptoms strongly suggestive of acute TIA. Her symptoms have resolved on reevaluation and she is feeling well. Case discussed with Dr. Choi who will accept admission. I did discuss the case with Dr. King who states that not having any postoperative concerns at this time and patient does not require transfer back to [facility]. The patient had chest x-ray that I interpreted as negative for acute infiltrate or pneumothorax. The patient had CT of the brain that I interpreted as being negative for acute bony injury or acute intracranial hemorrhage, no acute stroke visualized Was pt. sent in by a medical professional or institution (, PA, RADIOLOGICAL ENGINEER, urgent care, hospital, or senior living...) When possible be specific @ -[No] Did you speak to anyone other than the patient for history (EMS, parent, family, police, friend...)? What history was obtained from this source @ -[No] Did you review nursing and triage notes (agree or disagree)? Why? @ -[I reviewed and agree with nursing and triage notes] Were old charts reviewed (outside hosp., previous admission, EMS record, old EKG, old radiological studies, urgent care reports/EKG's, senior living records)? Report findings @ -[No old charts were reviewed] Differential Diagnosis (chest pain, altered mental status, abdominal pain women, abdominal pain men, vaginal bleeding, weakness, fever, dyspnea, syncope, headache, dizziness, GI bleed, back pain, seizure, CVA, palpatations, mental health, musculoskeletal)? @ -[Differential CVA Ischemic stroke, hemorrhagic stroke, brain tumor, atypical migraine, Wernicke's encephalopathy, seizure, multiple sclerosis, meningitis, encephalitis, hypoglycemia, Guillain-Albrecht, electrolytes disturbance, myasthenia gravis.... This is not meant to be an all-inclusive list EKG interpreted by me (3pts min.). @ -[I interpreted as above X-rays interpreted by me (1pt min.). @ -[I interpreted as above CT interpreted by me (1pt min.). @ -[I interpreted as above U/S interpreted by me (1pt. min.). @ -[None done] What testing was considered but not performed or refused? (CT, X-rays, U/S, labs)? Why? @ -[None] What meds were considered but not given or refused? Why? @ -[None] Did you discuss the management of the patient with other professionals (professionals i.e. , PA, RADIOLOGICAL ENGINEER, lab, RT, psych nurse, social insurance adviser, r&d lab technician, teacher, patient transport officer, case technician)? Give summary @ -[As above Case discussed with the admitting physician and with the patient's cardiothoracic surgeon Was smoking cessation discussed for >3mins.? @ -[No] Was critical care preformed (if so, how long)? @ -[No] Were there social determinants of health that impacted care today? How? (Homelessness, low income, unemployed, alcoholism, drug addiction, transportation, low edu. Level, literacy, decrease access to med. care, senior care, rehab)? @ -[No] Was there de-escalation of care discussed even if they declined (Discuss DNR or withdrawal of care, Hospice)? DNR status @ -[No] What co-morbidities impacted this encounter? (DM, HTN, Smoking, COPD, CAD, Cancer, CVA, ARF, Chemo, Hep., AIDS, mental health diagnosis, sleep apnea, morbid obesity)? @ -[None] Was patient admitted / discharged? Hospital course, mention meds given and route, prescriptions, significant lab abnormalities, going to OR and other pertinent info. @ -[The patient will be admitted to have MRI and neurology consultation as well as further workup Undiagnosed new problem with uncertain prognosis? @ -[No] Drug Therapy requiring intensive monitoring for toxicity (Heparin, Nitro, Insulin, Cardizem)? @ -[No] Were any procedures done? @ -[No] Diagnosis/symptom? @ -[Acute TIA Acute, or Chronic, or Acute on Chronic? @ -[Acute Uncomplicated (without systemic symptoms) or Complicated (systemic symptoms)? @ -Uncomplicated Side effects of treatment? @ -[No] Exacerbation, Progression, or Severe Exacerbation? @ -[No] Poses a threat to life or bodily function? How? (Chest pain, USA, ID, pneumonia, PE, COPD, DKA, ARF, appy, cholecystitis, CVA, Diverticulitis, Homicidal, Suicidal, threat to staff... and all critical care pts) @ -[No] - EKG Data -: EKG Interpreted by Me EKG shows normal: sinus rhythm, axis (Normal), intervals (Normal), QRS complexes (Low-voltage QRS complex), ST-T waves (There are lateral T inversions.) Rate: normal (Rate 96 bpm) Past Medical History Past Medical History: Cancer, Eye Disorder, Hypertension, Osteoarthritis (OA) Additional Past Medical History / Comment(s): See Cardiology H&P. Varicose veins, basal cell skin CA, hx. colon polyps, heart rate runs low, leaky valve. Due to have Sleep Study. Start of macular degeneration. History of Any Multi-Drug Resistant Organisms: None Reported Past Surgical History: Cholecystectomy, Heart Catheterization, Orthopedic Surgery, Tubal Ligation Additional Past Surgical History / Comment(s): club foot surg as ,basal cell removed-Moh's procedure, right foot surg. Past Anesthesia/Blood Transfusion Reactions: No Reported Reaction, Motion Sickness Past Psychological History: No Psychological Hx Reported Smoking Status: Never smoker Past Alcohol Use History: Occasional Past Drug Use History: Marijuana - Past Family History Mother Family Medical History: No Reported History Additional Family Medical History / Comment(s): Mother is . She was a smoker. She had emphysema. Father Family Medical History: Cancer Additional Family Medical History / Comment(s): Bladder cancer, leukemia. Brother(s) Family Medical History: Cancer Additional Family Medical History / Comment(s): Prostate cancer. Course Vital Signs 04/28/23 04/28/23 04/28/23 15:18 15:30 16:00 Temperature 97.6 F Pulse Rate 98 102 H 100 Respiratory 16 18 19 Rate Blood Pressure 116/77 136/88 125/80 O2 Sat by Pulse 99 96 94 L Oximetry 04/28/23 04/28/23 04/28/23 16:30 19:54 23:30 Temperature Pulse Rate 97 100 98 Respiratory 19 16 20 Rate Blood Pressure 111/80 132/95 98/73 O2 Sat by Pulse 95 95 95 Oximetry 04/29/23 04/29/23 04/29/23 04:01 06:53 09:00 Temperature Pulse Rate 95 86 91 Respiratory 16 16 18 Rate Blood Pressure 126/80 119/75 118/80 O2 Sat by Pulse 96 95 98 Oximetry - Reevaluation(s) Reevaluation #1: 04/28/23 18:[address] Jimbo King, patient's surgeon from [facility]. Disposition Clinical Impression: TIA (transient ischemic attack) Disposition: ADMITTED IP TO THIS [facility] Condition: Good Is patient prescribed a controlled substance at d/c from ED?: No
[2023-04-28 16:41] LABS: Basophils % (A) 0 %; Eosinophils # (A) 0.4 k/uL (0-0.7); Eosinophils % (A) 5 %; HCT 31.3 % (34.0-46.0); HGB 10.6 gm/dL (11.4-16.0); Lymphocytes # (A) 0.9 k/uL (1.0-4.8); Lymphocytes % (A) 12 %; MCH 32.8 pg (25.0-35.0); MCV 96.5 fL (80.0-100.0); Mean Platelet Volume 7.6; Monocytes # (A) 0.4 k/uL (0-1.0); Monocytes % (A) 5 %; Neutrophils # (A) 5.7 k/uL (1.3-7.7); Neutrophils % (A) 77 %; Platelet Count 505 k/uL (150-450); RBC 3.24 m/uL (3.80-5.40); RDW 12.7 % (11.5-15.5); WBC 7.4 k/uL (3.8-10.6)
--- NOTE | 2023-04-28 16:51 | XR ---
EXAMINATION TYPE: XR chest 2V DATE OF EXAM: 04/28/2023 COMPARISON: 03/19/2021 INDICATION: Numbness back and blurry vision TECHNIQUE: Frontal and lateral views of the chest are obtained. FINDINGS: The heart size is normal. The pulmonary vasculature is normal. Some mild plate atelectasis at the right diaphragm. Sternotomy wires from the patient's cardiac surge ry are evident.. IMPRESSION: 1. Plate atelectasis right lung base
[2023-04-28 16:55] LABS: INR 0.9 (<1.2); Partial Thromboplastin Time 22.3 sec (22.0-30.0)
[2023-04-28 16:56] LABS: ALT 197 U/L (4-34); AST 79 U/L (14-36); African American GFR (CKD) >90 (>60 ml/min/1.73 sqM); Albumin 3.6 g/dL (3.5-5.0); Alkaline Phosphatase 117 U/L (38-126); Anion Gap 9 mmol/L; Blood Urea Nitrogen 12 mg/dL (7-17); Calcium 9.1 mg/dL (8.4-10.2); Carbon Dioxide 22 mmol/L (22-30); Chloride 105 mmol/L (98-107); Creatine Kinase 50 U/L (30-135); Glucose 116 mg/dL (74-99); Non-African American GFR(CKD) >90 (>60 ml/min/1.73 sqM); Potassium 4.5 mmol/L (3.5-5.1); Sodium 136 mmol/L (137-145); Total Bilirubin 0.3 mg/dL (0.2-1.3); Total Protein 6.1 g/dL (6.3-8.2)
--- NOTE | 2023-04-28 17:35 | CT ---
EXAMINATION TYPE: CT brain wo con DATE OF EXAM: 04/28/2023 COMPARISON: None INDICATION: Headache DLP: 1124.4 mGycm, Automated exposure control for dose reduction was used. CONTRAST: None CT of the brain is performed utilizing 3 mm thick sections through the posterior fossa and 3 mm thick sections through the remaining calvarium. Study is performed within 24 hours of arrival to the hosp ital. No abnormal hyperdensity is present to suggest an acute intracranial hemorrhage. No mass lesion is evident. No acute infarcts are evident. Ventricles and sulci are appropriate for the patient age. Paranasal sinuses and mastoid air cells within the [id number] are clear. IMPRESSION: 1. No acute intracranial process. Follow-up MRI can be performed as clinically indicated.
[2023-04-28] MEDS ORDERED: CYCLOBENZAPRINE 5 MG TAB PO PRN (19:42)
[2023-04-28] MEDS: ASPIRIN 81 MG PO SCH (19:53)
[2023-04-29] MEDS: ACETAMINOPHEN TAB 325 MG TAB PO PRN (03:17)
--- NOTE | 2023-04-29 07:02 | XR ---
EXAMINATION TYPE: XR chest 2V DATE OF EXAM: 04/29/2023 COMPARISON: INDICATION: Short of breath TECHNIQUE: Frontal and lateral views of the chest are obtained. FINDINGS: The heart size is normal. Sternotomy wires are present from cardiac valve surgery. The pulmonary vasculature is normal. There is some linear opacity at the right diaphragm. Correlate for atelectasis.. IMPRESSION: 1. Mild atelectasis right lung base.
[2023-04-29 08:44] LABS: ALT 173 U/L (4-34); AST 72 U/L (14-36); African American GFR (CKD) >90 (>60 ml/min/1.73 sqM); Albumin 3.5 g/dL (3.5-5.0); Alkaline Phosphatase 107 U/L (38-126); Anion Gap 6 mmol/L; Blood Urea Nitrogen 13 mg/dL (7-17); Calcium 9.4 mg/dL (8.4-10.2); Carbon Dioxide 27 mmol/L (22-30); Chloride 106 mmol/L (98-107); Glucose 103 mg/dL (74-99); Non-African American GFR(CKD) >90 (>60 ml/min/1.73 sqM); Potassium 5.1 mmol/L (3.5-5.1); Sodium 139 mmol/L (137-145); Total Bilirubin 0.4 mg/dL (0.2-1.3); Total Protein 5.8 g/dL (6.3-8.2)
[2023-04-29 08:53] LABS: NT-Pro-B-Type Natriuretic Pept 468 pg/mL
[2023-04-29 09:01] LABS: Basophils % (A) 0 %; Eosinophils # (A) 0.4 k/uL (0-0.7); Eosinophils % (A) 6 %; HCT 33.2 % (34.0-46.0); HGB 10.7 gm/dL (11.4-16.0); Lymphocytes % (A) 15 %; MCHC 32.4 g/dL (31.0-37.0); MCV 98.6 fL (80.0-100.0); Monocytes # (A) 0.4 k/uL (0-1.0); Monocytes % (A) 6 %; Neutrophils # (A) 4.7 k/uL (1.3-7.7); Neutrophils % (A) 71 %; Platelet Count 581 k/uL (150-450); RBC 3.36 m/uL (3.80-5.40); RDW 12.3 % (11.5-15.5); WBC 6.6 k/uL (3.8-10.6)
--- NOTE | 2023-04-29 09:03 | P.HPIM ---
History of Present Illness H&P Date: 04/28/23 Chief Complaint: TIA, post mitral valve surgery, visual disturbance with right- sided numbnes HISTORY OF PRESENT ILLNESS: 68-year-old female 1 of obstipation with history of hypertension, hyperlipidemia, severe mitral regurgitation post mitral valve placement this last week with Dr. King at [facility] which apparently patient was released from [facility] last night. She developed around 1:30 in the afternoon today to have slight problem with visual disturbance affecting the right side in the peripheral area of her vision become more blurry then was associated with slight numbness on the right side of her arm and leg felt revision was a big factor for it as well. She has mild lightheadedness with no dizziness. Did not have any slurred speech no droopy face no weakness of the upper or lower extremity. EMS was activated and brought patient to the emergency department her NIH score was 0. Laboratory evaluation showed low-grade anemia with hemoglobin of 10.6 mildly thrombocytosis at 505, still have mild hyponatremia 136 with mild hyperglycemia slightly elevated liver function test with elevated ALT and AST. Troponin was mildly elevated at 0.098. CAT scan of the brain shows no acute intracranial process recommend MRI if there is any suspicion. Chest x- ray shows plate atelectasis at the right lung base. Patient is not acting somebody has pneumonia at this point. Notifying cardiovascular chemotherapy for the hospital they did not see any need for her to be transferred, referred back to the watch study and see neurology in town unfinalized testing. My fear whether patient will require to have transesophageal echocardiogram or not and how much this is an impact review with the recent surgery. The decision is to be left up to the weighmaster lead by tomorrow probably. REVIEW OF SYSTEMS: CONSTITUTIONAL: Well-developed no acute respiratory distress. EYES: No icterus sclerae, no conjunctivitis. EARS, NOSE, MOUTH, THROAT, and FACE: No sore throat, lymphadenopathy, carotid bruits or deformity. RESPIRATORY: No SOB cough or wheezes. Chest wall with surgery with no sign of infection. CARDIOVASCULAR: No CP, Palpitation, PND, Orthopnea, or angina. GASTROINTESTINAL: No Abd pain, Nausea or vomiting, no Diarrhea or constipation, No GI Bleed, no distention or masses. GENITOURINARY: Negative for Hematuria or UTI, no kidney stones. INTEGUMENT/BREAST: Negative for any muscular injury with mild osteoarthritis.. HEMATOLOGIC/LYMPHATIC: Negative for bleed or purpura. MUSCULOSKELTAL: Negative for Myalgia or arthralgia. NEURLOGICAL: No LOC, Sz or syncope, blurred vision dizziness or abnormality.. BEHAVIORAL/PSYCH: Negative. ENDOCRINE: Negative. PHYSICAL EXAMINATION: General Appearance: Alert, cooperative, no distress, appears stated age. Neck HEENT: Supple, no lymphadenopathy, no thyroid enlargement, no carotid bruits. Lungs: Clear to auscultation without crackles or wheezes no rhonchi, no deformity. Chest Wall: Incision from her open heart surgery still looks clean no irritation infection or induration around it., no costochondral pain or discomfort. Heart: Regular rate and rhythm, S1, S2 normal, slightly bradycardia with systoli c murmur. Back: Symmetric, no curvature, ROM normal, no CVA tenderness. Abdomen: Soft, non-tender, bowel sounds active all four quadrants, no masses, no organomegaly. Extremities: Extremities normal, atraumatic, no cyanosis or edema. Pulses: 2+ and symmetric. Skin: Skin color, texture, tugor normal, no rashes or lesions. Neurologic: Alert oriented x3 cranial nerves II through XII intact, no motor deficit, slight numbness in the right side visual acuity and vision is normal, not able to do balance and gait. ASSESSMENT AND PLAN: _TIA: Not a clear etiology at this point no sign of A-fib the patient had mitral valve surgery this last week the possibility and of having thrombus specially if no anticoagulation, whether patient is katt benefit from doing a transesophageal echocardiogram at this point or not this to be determined. _Severe mitral regurgitation post mitral valve surgery will be back to see cardiology in the next week or so. _Elevated troponin: Which could be secondary to troponin leak shortly after surgery. _Abnormal liver function test which can be transitional hypoxic hepatitis from hypoperfusion after surgery ultrasound of the gallbladder and the liver will be done. _Elevated blood pressure, supposed to be on smaller dose of beta-bipin but patient is not on currently. _Iron deficiency anemia: Still on iron supplement regular basis. _GI prophylaxis: She will be on Pepcid 20 mg daily. _DVT prophylaxis: Patient will be on subcu Lovenox with early mobilization and knee-high ELDON hose. Past Medical History Past Medical History: Cancer, Eye Disorder, Hypertension, Osteoarthritis (OA) Additional Past Medical History / Comment(s): See Cardiology H&P. Varicose veins, basal cell skin CA, hx. colon polyps, heart rate runs low, leaky valve. Due to have Sleep Study. Start of macular degeneration. History of Any Multi-Drug Resistant Organisms: None Reported Past Surgical History: Cholecystectomy, Heart Catheterization, Orthopedic Surgery, Tubal Ligation Additional Past Surgical History / Comment(s): club foot surg as ,basal cell removed-Moh's procedure, right foot surg. Past Anesthesia/Blood Transfusion Reactions: No Reported Reaction, Motion Sickness Past Psychological History: No Psychological Hx Reported Smoking Status: Never smoker Past Alcohol Use History: Occasional Past Drug Use History: Marijuana - Past Family History Mother Family Medical History: No Reported History Additional Family Medical History / Comment(s): Mother is . She was a smoker. She had emphysema. Father Family Medical History: Cancer Additional Family Medical History / Comment(s): Bladder cancer, leukemia. Brother(s) Family Medical History: Cancer Additional Family Medical History / Comment(s): Prostate cancer. Medications and Allergies Home Medications Medication Instructions Recorded Confirmed Type Multivit-Min/Iron/Folic/Lutein 1 tab PO DAILY 11/29/17 04/28/23 History [Centrum Silver Women Tablet] Cholecalciferol [Vitamin D3 (25 25 mcg PO DAILY 12/20/22 04/28/23 History Mcg = 1000 Iu)] Acetaminophen [Tylenol] 650 mg PO Q4H PRN 04/28/23 04/28/23 History Aspirin 81 mg PO DAILY 04/28/23 04/28/23 History Cyclobenzaprine [Flexeril] 5 mg PO TID PRN 04/28/23 04/28/23 History Ferrous Sulfate [Feosol] 325 mg PO DAILY 04/28/23 04/28/23 History Vit C/E/Zn/Coppr/Lutein/Zeaxan 1 cap PO DAILY 04/28/23 04/28/23 History [Preservision Areds 2 Softgel] Allergies Allergy/AdvReac Type Severity Reaction Status Date / Time No Known Allergies Allergy Verified 04/28/23 17:43 Physical Exam Vitals: Vital Signs Temp Pulse Resp BP Pulse Ox 04/28/23 19:54 100 16 132/95 95 04/28/23 16:30 97 19 111/80 95 04/28/23 16:00 100 19 125/80 94 L 04/28/23 15:30 102 H 18 136/88 96 04/28/23 15:18 97.6 F 98 16 116/77 99 Intake and Output 04/28/23 04/28/23 04/28/23 06:59 14:59 22:59 Other: Weight 81.647 kg Results CBC & Chem 7: 04/28/23 16:16 04/29/23 07:57 Labs: Abnormal Lab Results - Last 24 Hours (Table) 04/28/23 04/28/23 04/28/23 Range/Units 16:16 16:16 16:16 RBC 3.24 L (3.80-5.40) m/uL Hgb 10.6 L (11.4-16.0) gm/dL Hct 31.3 L (34.0-46.0) % Plt Count 505 H (150-450) k/uL Lymphocytes # 0.9 L (1.0-4.8) k/uL Sodium 136 L (137-145) mmol/L Glucose 116 H (74-99) mg/dL AST 79 H (14-36) U/L ALT 197 H (4-34) U/L Troponin I 0.098 H* (0.000-0.034) ng/mL Total Protein 6.1 L (6.3-8.2) g/dL
[2023-04-29] MEDS: FERROUS SULFATE 325 MG TAB PO SCH (09:10)
[2023-04-29] MEDS: CHOLECALCIFEROL 25 MCG (1000 IU) TABLET PO SCH (09:10)
[2023-04-29] MEDS: ASPIRIN 81 MG PO SCH (09:10)
[2023-04-29] MEDS: VIT A,C & E-LUTEIN-MINERALS 1 EACH TAB PO SCH (09:11)
--- NOTE | 2023-04-29 09:39 | US ---
EXAMINATION TYPE: US abdomen limited DATE OF EXAM: 04/29/2023 COMPARISON: 06/29/2010 CLINICAL INDICATION: Female, 68 years old with history of Abnormal LFT; Hx Cholecystectomy TECHNIQUE: Multiple sonographic images of the right upper quadrant are obtained. FINDINGS: EXAM MEASUREMENTS: Liver Length: 20.1 cm Gallbladder Wall: NA cm CBD: 1.1 cm Right Kidney: 10.4 x 4.7 x 5.0 cm CUTTING DEPARTMENT SUPERVISOR NOTES:Patency noted within liver and surrounding vessels Pancreas: wnl Liver: Enlarged Gallbladder: Surgically absent Evidence for sonographic Kelly's sign: No CBD: Dilated, normal 1.0 in a post cholecystectomy patient. Right Kidney: wnl IMPRESSION: 1. Hepatomegaly.
[2023-04-29 09:43] LABS: Chol/HDL Ratio 3.71 Ratio; VLDL Calculation 19.64 mg/dL (5.00-40.00)
--- NOTE | 2023-04-29 10:00 | US ---
EXAMINATION TYPE: US carotid duplex BILAT DATE OF EXAM: 04/29/2023 COMPARISON: NONE CLINICAL INDICATION: Female, 68 years old with history of TIA; Right sided visual disturbance and low er extremity weakness TECHNIQUE: Carotid duplex ultrasound examination. Indirect Doppler criteria was utilized. FINDINGS: EXAM MEASUREMENTS: RIGHT: Peak Systolic Velocity (PSV) cm/sec ----- Right CCA: 90 ----- Right ICA: 88 ----- Right ECA: 81 ICA/CCA ratio: 1.0 RIGHT: End Diastole cm/sec ----- Right CCA: 26 ----- Right ICA: 35 ----- Right ECA: 26 LEFT: Peak Systolic Velocity (PSV) cm/sec ----- Left CCA: 86 ----- Left ICA: 97 ----- Left ECA: 91 ICA/CCA ratio: 1.1 LEFT: End Diastole cm/sec ----- Left CCA: 30 ----- Left ICA: 46 ----- Left ECA: 18 VERTEBRALS (direction of flow): Right Vertebral: Antegrade Left Vertebral: Antegrade Rhythm: Normal MANAGER WEB NOTES: no intimal thickening, plaque, or elevated velocities noted. Incidental, bilateral thyroid nodules noted IMPRESSION: 1. No significant flow-limiting stenosis bilateral carotid bifurcations. Criteria for Assigning % of Stenosis / Diameter reduction (Estimation based on the indirect measurements of the internal carotid artery velocities (ICA PSV). 1. Normal (no stenosis)=ICA PSV < 125 cm/s: ratio < 2.0: ICA EDV<40 cm/s. 2. Less than 50% stenosis=ICA PSV < 125 cm/s: ratio < 2.0: ICA EDV<40 cm/s. 3. 50 to 69% stenosis=ICA PSV of 125 to 230 cm/s: ration 2.0 ? 4.0: ICA EDV 40-100 cm/s. 4. Greater than 70% stenosis to near occlusion= ICA PSV > 230 cm/s: ratio > 4.0: ICA EDV > 100 cm/s. 5. Near occlusion= ICA PSV velocities may be low or undetectable: variable ratio and ICA EDV. 6. Total occlusion=unable to detect flow.
--- NOTE | 2023-04-29 10:32 | CA ---
Transthoracic Echo Report Name: Olivia Borges Age: 68 Gender: F : 1955 Exam Date: 04/29/2023 08:11 Exam Location: [facility] Ht (in): 66 Wt (lb): 180 Ordering Physician: Micheal Choi MD Attending/Referring Phys: House Visitor Kianna Forbes RCS Procedure CPT: Indications: lvfunction Cardiac Hx: Mitral valve repair last week. Technical Quality: Fair Contrast 1: Total Dose (mL): Contrast 2: Total Dose (mL): MEASUREMENTS (Male / Female) Normal Values 2D ECHO LV Diastolic Diameter PLAX 5.2 cm 4.2 - 5.9 / 3.9 - 5.3 cm LV Systolic Diameter PLAX 3.5 cm IVS Diastolic Thickness 0.8 cm 0.6 - 1.0 / 0.6 - 0.9 cm LVPW Diastolic Thickness 1.1 cm 0.6 - 1.0 / 0.6 - 0.9 cm LV Relative Wall Thickness 0.4 RV Internal Dim ED PLAX 3.0 cm LVOT Diameter 2.3 cm LV Diastolic Volume MOD BP 109.1 cm??? 67 - 155 / 56 - 104 cm??? LV Systolic Volume MOD BP 51.9 cm??? 22 - 58 / 19 - 49 cm??? LV Ejection Fraction MOD BP 52.4 % >= 55 % LV Cardiac Index MOD BP 2465.4 cm???/min???m??? LV Diastolic Volume MOD 4C 109.3 cm??? LV Systolic Volume MOD 4C 53.3 cm??? LV Ejection Fraction MOD 4C 51.2 % LV Cardiac Index MOD 4C 2413.9 cm???/min???m??? LV Diastolic Length 4C 8.8 cm LV Systolic Length 4C 7.5 cm LV Diastolic Volume MOD 2C 107.7 cm??? LV Systolic Volume MOD 2C 42.7 cm??? LV Ejection Fraction MOD 2C 60.4 % LV Cardiac Index MOD 2C 2801.0 cm???/min???m??? LV Diastolic Length 2C 8.7 cm LV Systolic Length 2C 6.3 cm LA Volume 48.1 cm??? 18 - 58 / 22 - 52 cm??? LA Volume Index 24.4 cm???/m??? 16 - 28 cm???/m??? DOPPLER AV Peak Velocity 128.7 cm/s AV Peak Gradient 6.6 mmHg AV Mean Velocity 93.0 cm/s AV Mean Gradient 3.8 mmHg AV Velocity Time Integral 21.0 cm LVOT Peak Velocity 109.8 cm/s LVOT Peak Gradient 4.8 mmHg LVOT Velocity Time Integral 18.8 cm LVOT Stroke Volume 78.2 cm??? LVOT Stroke Volume Index 40.9 ml/m??? LVOT Cardiac Index 3371.8 cm???/min???m??? AV Area Cont Eq vti 3.7 cm??? AV Area Cont Eq pk 3.5 cm??? MV Peak Velocity 116.6 cm/s MV Peak Gradient 5.4 mmHg MV Mean Velocity 81.6 cm/s MV Mean Gradient 2.8 mmHg MV Velocity Time Integral 26.1 cm MV Area PHT 3.5 cm??? Mitral E Point Velocity 92.6 cm/s Mitral A Point Velocity 108.7 cm/s Mitral E to A Ratio 0.9 MV Deceleration Time 215.5 ms TR Peak Velocity 233.8 cm/s TR Peak Gradient 21.9 mmHg PV Peak Velocity 77.5 cm/s PV Peak Gradient 2.4 mmHg FINDINGS Left Ventricle Left ventricular ejection fraction is estimated at 55-60 %. Mildly increased posterior wall thickness. Mildly increased left ventricular diastolic volume. Mildly increased left ventricular systolic volume. No obvious regional wall motion abnormalities. Right Ventricle Normal right ventricular size and function. Right ventricular systolic pressure within normal limits. Right Atrium Normal right atrial size. Left Atrium Normal left atrial size. Mitral Valve Mitral valve repair. Gradient recorded across the mitral valve repair is within the expected range. Trace mitral regurgitation. Aortic Valve Trileaflet aortic valve. No aortic valve stenosis. Trace aortic regurgitation. Tricuspid Valve Structurally normal tricuspid valve. No tricuspid stenosis. Trace tricuspid regurgitation. Pulmonic Valve Structurally normal pulmonic valve. No pulmonic regurgitation. No pulmonic stenosis. Pericardium No pericardial effusion. Aorta Normal size aortic root and proximal ascending aorta. CONCLUSIONS Normal LV systolic function Previewed by: Dr. Moshe Hess MD (Electronically Signed) Final Date: 29 April 2023 10:31
--- NOTE | 2023-04-29 11:22 | P.CRDCN ---
History of Present Illness Consult date: 04/29/23 Reason for Consult (text): Possible need for CALEB for TIA 1 week following mitral valve repair surgery History of present illness: . History of present illness: This is a 68-year-old female patient of Dr. Palacio with past medical history of hypertension, hyperlipidemia, severe mitral regurgitation status post mitral valve open repair done last week at [facility]. Patient states that she was discharged on Tuesday and was placed on aspirin 81 mg daily. We have been asked to evaluate the patient for possible CALEB regarding TIA following valve surgery. Patient states that she came into the hospital because she had some numbness to the buttocks to the thigh and also involves her right arm numbness and she had some vision loss when she was texting can see the outer lateral letters which seems to be blocked. She states she also had some type of a flash in her eyes last night. Her heart may have been fluttering as well. Evelyn bronson denies history of atrial fibrillation. All her symptoms have resolved at the time of this evaluation. EKG sinus rhythm Chest x-ray: Mild atelectasis right lung base. CAT scan of the brain revealed no acute intracranial process. Abdominal ultrasound hepatomegaly Echocardiogram performed 04/29/2023 reveals EF 55 to 60%. Mitral valve repair. Gradient recorded across the mitral valve repair is within the expected range. Trace mitral regurgitation. WBC 6.6, hemoglobin 10.7, platelet count 581. Electrolytes and renal function are normal. AST 72, ALT 173. Troponin 0.098 and 0.098. proBNP 468. Triglycerides 98, cholesterol 202, LDL 128, HDL 54. Recent TSH 0.34. Home cardiac medications: Aspirin 81 mg daily. CALEB performed 12/21/[address] Monte revealed severe primary mitral regurgitatio n due to prolapse of posterior leaflet. Mild AI. Thickened anterior leaflet of the mitral valve and thickened leaflets of aortic valve. Anatomy suggestive of Gupta's disease. Dilated ascending aortic root measuring 4 cm. Review Of Systems: At the time of my exam: CONSTITUTIONAL: Denies fever or chills. HEENT: Denies blurred vision, vision changes, or eye pain. Denies hemoptysis CARDIOVASCULAR: Denies chest pain. Denies orthopnea. Denies PND. Denies palpitations RESPIRATORY: Denies shortness of breath. GASTROINTESTINAL: Denies abdominal pain. Denies nausea or vomiting. HEMATOLOGIC: Denies bleeding disorders. GENITOURINARY: Denies any blood in urine. SKIN: Denies pruitis. Denies rash.- Physical examination: Gen: This is a 68-year-old in no acute distress VS: reviewed HEENT: Head is atraumatic, normocephalic. Pupils equal, round. Sclerae is anicteric. NECK: Supple. No JVD. LUNGS: Clear to auscultation. No wheezes or rhonchi. No intercostal retractions. HEART: Regular rate and rhythm. Systolic murmur. ABDOMEN: Soft No tenderness. EXTREMITIES: No pedal edema. No calf tenderness. NEUROLOGICAL: Patient is awake, alert and oriented x3. Assessment: TIA, symptoms resolved Rule out cardiac source of symptoms Severe mitral regurgitation status post mitral valve open repair Hypertension Hyperlipidemia Plan: Resume patient's home cardiac medications Schedule patient for CALEB today if cleared by neurology Further recommendations to follow based upon clinical course Thank you kindly for this consultation. Nurse practitioner note has been reviewed, I agree with documented findings and plan of care. Patient was seen and examined. Past Medical History Past Medical History: Cancer, Eye Disorder, Hypertension, Osteoarthritis (OA) Additional Past Medical History / Comment(s): See Cardiology H&P. Varicose veins, basal cell skin CA, hx. colon polyps, heart rate runs low, leaky valve. Due to have Sleep Study. Start of macular degeneration. History of Any Multi-Drug Resistant Organisms: None Reported Past Surgical History: Cholecystectomy, Heart Catheterization, Orthopedic Surgery, Tubal Ligation Additional Past Surgical History / Comment(s): club foot surg as infant,basal cell removed-Moh's procedure, right foot surg. Past Anesthesia/Blood Transfusion Reactions: No Reported Reaction, Motion Sickn ess Past Psychological History: No Psychological Hx Reported Smoking Status: Never smoker Past Alcohol Use History: Occasional Past Drug Use History: Marijuana - Past Family History Mother Family Medical History: No Reported History Additional Family Medical History / Comment(s): Mother is . She was a smoker. She had emphysema. Father Family Medical History: Cancer Additional Family Medical History / Comment(s): Bladder cancer, leukemia. Brother(s) Family Medical History: Cancer Additional Family Medical History / Comment(s): Prostate cancer. Medications and Allergies Home Medications Medication Instructions Recorded Confirmed Type Multivit-Min/Iron/Folic/Lutein 1 tab PO DAILY 11/29/17 04/28/23 History [Centrum Silver Women Tablet] Cholecalciferol [Vitamin D3 (25 25 mcg PO DAILY 12/20/22 04/28/23 History Mcg = 1000 Iu)] Acetaminophen [Tylenol] 650 mg PO Q4H PRN 04/28/23 04/28/23 History Aspirin 81 mg PO DAILY 04/28/23 04/28/23 History Cyclobenzaprine [Flexeril] 5 mg PO TID PRN 04/28/23 04/28/23 History Ferrous Sulfate [Feosol] 325 mg PO DAILY 04/28/23 04/28/23 History Vit C/E/Zn/Coppr/Lutein/Zeaxan 1 cap PO DAILY 04/28/23 04/28/23 History [Preservision Areds 2 Softgel] Allergies Allergy/AdvReac Type Severity Reaction Status Date / Time No Known Allergies Allergy Verified 04/28/23 17:43 Physical Exam Vitals: Vital Signs Temp Pulse Resp BP Pulse Ox 04/29/23 06:53 86 16 119/75 95 04/29/23 04:01 95 16 126/80 96 04/28/23 23:30 98 20 98/73 95 04/28/23 19:54 100 16 132/95 95 04/28/23 16:30 97 19 111/80 95 04/28/23 16:00 100 19 125/80 94 L 04/28/23 15:30 102 H 18 136/88 96 04/28/23 15:18 97.6 F 98 16 116/77 99 Intake and Output 04/28/23 04/29/23 04/29/23 22:59 06:59 14:59 Other: Weight 81.647 kg Results 04/29/23 07:57 04/29/23 07:57 Cardiac Enzymes 04/28/23 04/28/23 Range/Units 16:16 16:16 AST 79 H (14-36) U/L Troponin I 0.098 H* (0.000-0.034) ng/mL Coagulation 04/28/23 Range/Units 16:16 PT 10.0 (10.0-12.5) sec APTT 22.3 (22.0-30.0) sec CBC 04/28/23 Range/Units 16:16 WBC 7.4 (3.8-10.6) k/uL RBC 3.24 L (3.80-5.40) m/uL Hgb 10.6 L (11.4-16.0) gm/dL Hct 31.3 L (34.0-46.0) % Plt Count 505 H (150-450) k/uL Comprehensive Metabolic Panel 04/28/23 Range/Units 16:16 Sodium 136 L (137-145) mmol/L Potassium 4.5 (3.5-5.1) mmol/L Chloride 105 (98-107) mmol/L Carbon Dioxide 22 (22-30) mmol/L BUN 12 (7-17) mg/dL Creatinine 0.54 (0.52-1.04) mg/dL Glucose 116 H (74-99) mg/dL Calcium 9.1 (8.4-10.2) mg/dL AST 79 H (14-36) U/L ALT 197 H (4-34) U/L Alkaline Phosphatase 117 (38-126) U/L Total Protein 6.1 L (6.3-8.2) g/dL Albumin 3.6 (3.5-5.0) g/dL Current Medications Generic Name Dose Route Start Last Admin Trade Name Freq PRN Reason Stop Dose Admin Acetaminophen 650 mg 04/28/23 19:42 04/29/23 03:17 Acetaminophen Tab 325 Mg Tab PO 650 mg Q4H PRN Administration Pain or Fever > 100.5 Aspirin 81 mg 04/29/23 09:00 Aspirin 81 Mg PO DAILY [facility] Cholecalciferol 25 mcg 04/29/23 09:00 Cholecalciferol 25 Mcg (1000 Iu) Tablet PO DAILY [facility] Cyclobenzaprine HCl 5 mg 04/28/23 19:42 Cyclobenzaprine 5 Mg Tab PO TID PRN Muscle Pain Ferrous Sulfate 325 mg 04/29/23 09:00 Ferrous Sulfate 325 Mg Tab PO DAILY [facility] Multivitamins/Minerals 1 each 04/29/23 09:00 Vit A,C & K-[id number] 1 Each Tab PO DAILY [facility] Intake and Output 04/28/23 04/29/23 04/29/23 22:59 06:59 14:59 Other: Weight 81.647 kg 04/28/23 16:16 04/28/23 16:16
--- NOTE | 2023-04-29 12:44 | P.CNNES ---
History of Present Illness Consult date: 04/29/23 Requesting physician: Nikita Roberts Reason for Consult: tia, right ext numbness resolved History of Present Illness: This is a 68-year-old woman who presented emergency department because of numbness over the right posterior thigh as well as numbness in the right upper extremity with visual disturbance. Patient stated that she noticed her symptoms yesterday between 1 and 1:30 PM. No all her symptoms started at the same time. She was taxing and then she felt that the she could not see things towards the end of the line which was texting and unsure of which eye which could have been both. Then later noticed numbness in the posterior thigh and numbness in the right upper extremity. Her symptoms lasted a few minutes then resolved. She recently had mitral regurgitation valve replacement on 04/20/2022 at [facility] then was discharged on 04-27. She denies any history of stroke. She is on aspirin 81 mg daily. Otherwise she has some mild shoulder pain but she had it since the surgery. She denies any history of A. fib or flutter that she is aware of. Some other workup during his hospital visit consisted of: Initial troponin Ivonne 0.098. AST of 79 ALT over 97 Sodium was 136 Initial serum glucose is 160 Lipid panel is triglyceride 98, cholesterol 202, LDLs 128 and HDL is 54 CK level is 50. CAT scan of the brain shows no acute intracranial process recommend MRI if there is any suspicion. I personally reviewed this study head and I agree with the report Carotid Duplex was reported as no significant flow limiting stenosis bilateral carotid bifurcation. 2-D echo was reported as normal left ventricle stop function. Normal left atrial size. Review of Systems Review of system: The 12 point system was reviewed and apparent positive and negative per HPI. Past Medical History Past Medical History: Cancer, Eye Disorder, Hypertension, Osteoarthritis (OA) Additional Past Medical History / Comment(s): See Cardiology H&P. Varicose veins, basal cell skin CA, hx. colon polyps, heart rate runs low, leaky valve. Due to have Sleep Study. Start of macular degeneration. History of Any Multi-Drug Resistant Organisms: None Reported Past Surgical History: Cholecystectomy, Heart Catheterization, Orthopedic Surgery, Tubal Ligation Additional Past Surgical History / Comment(s): club foot surg as infant,basal cell removed-Moh's procedure, right foot surg. Past Anesthesia/Blood Transfusion Reactions: No Reported Reaction, Motion Sickness Past Psychological History: No Psychological Hx Reported Smoking Status: Never smoker Past Alcohol Use History: Occasional Past Drug Use History: Marijuana - Past Family History Mother Family Medical History: No Reported History Additional Family Medical History / Comment(s): Mother is . She was a smoker. She had emphysema. Father Family Medical History: Cancer Additional Family Medical History / Comment(s): Bladder cancer, leukemia. Brother(s) Family Medical History: Cancer Additional Family Medical History / Comment(s): Prostate cancer. Medications and Allergies Home Medications Medication Instructions Recorded Confirmed Type Multivit-Min/Iron/Folic/Lutein 1 tab PO DAILY 11/29/17 04/28/23 History [Centrum Silver Women Tablet] Cholecalciferol [Vitamin D3 (25 25 mcg PO DAILY 12/20/22 04/28/23 History Mcg = 1000 Iu)] Acetaminophen [Tylenol] 650 mg PO Q4H PRN 04/28/23 04/28/23 History Aspirin 81 mg PO DAILY 04/28/23 04/28/23 History Cyclobenzaprine [Flexeril] 5 mg PO TID PRN 04/28/23 04/28/23 History Ferrous Sulfate [Feosol] 325 mg PO DAILY 04/28/23 04/28/23 History Vit C/E/Zn/Coppr/Lutein/Zeaxan 1 cap PO DAILY 04/28/23 04/28/23 History [Preservision Areds 2 Softgel] Allergies Allergy/AdvReac Type Severity Reaction Status Date / Time No Known Allergies Allergy Verified 04/28/23 17:43 Physical Examination - Vital Signs Vital Signs: Vital Signs Temp Pulse Resp BP Pulse Ox 04/29/23 09:00 91 18 118/80 98 04/29/23 06:53 86 16 119/75 95 04/29/23 04:01 95 16 126/80 96 04/28/23 23:30 98 20 98/73 95 04/28/23 19:54 100 16 132/95 95 04/28/23 16:30 97 19 111/80 95 04/28/23 16:00 100 19 125/80 94 L 04/28/23 15:30 102 H 18 136/88 96 04/28/23 15:18 97.6 F 98 16 116/77 99 Intake and Output 04/28/23 04/29/23 04/29/23 22:59 06:59 14:59 Other: Weight 81.647 kg GENERAL: The patient is sitting in a chair and is not in acute distress. CHEST: Has scar on anterior of chest from recent surgery. NEUROLOGICAL: Higher mental function: The patient is awake, alert, oriented to self, place and time. Patient is following commands. No aphasia and no neglect. Cranial nerves: The pupils are round, equal and reactive to light and accommodation. Visual garcia are full to confrontation throughout. Extraocular movement is intact no nystagmus is noted. Facial sensation is normal to touch throughout. The facial strength is normal throughout. Hearing is normal bilaterally to hand rub. Tongue is midline and moved [id number] without any difficulty. No dysarthria is noted. Shoulder shrug is normal bilaterally. Motor: The strength is 5 over 5 throughout. Normal tone and bulk. Cerebellum: Normal finger to nose heel to chin bilaterally. Sensation: Sensation is normal to touch throughout. Reflexes (right/left): 2+ throughout. Ankle are 1+. Plantars are downgoing bilaterally. Results - Laboratory Findings CBC and BMP: 04/29/23 07:57 04/29/23 07:57 Abnormal Lab Findings: Abnormal Labs 04/28/23 04/28/23 04/28/23 16:16 16:16 16:16 RBC 3.24 L Hgb 10.6 L Hct 31.3 L Plt Count 505 H Lymphocytes # 0.9 L Sodium 136 L Glucose 116 H AST 79 H ALT 197 H Troponin I 0.098 H* Total Protein 6.1 L Cholesterol 04/28/23 04/29/23 04/29/23 16:16 07:57 07:57 RBC 3.36 L Hgb 10.7 L Hct 33.2 L Plt Count 581 H Lymphocytes # Sodium Glucose 103 H AST 72 H ALT 173 H Troponin I Total Protein 5.8 L Cholesterol 202.00 H 04/29/23 04/29/23 07:57 10:23 RBC Hgb Hct Plt Count Lymphocytes # Sodium Glucose AST ALT Troponin I 0.098 H* 0.088 H* Total Protein Cholesterol Assessment and Plan Assessment: This is a 68-year-old woman who had a recent mitral valve replacement on 04/20/2023 at [facility] and was discharged on 2023. She presents in our facility because of the visual disturbance as well as numbness over the right thigh as well as upper extremity. Her symptoms lasted within a few minutes. Likely transient ischemic stroke. Patient has symptoms of transient numbness over the right upper extremity right posterior thigh and visual disturbance. She had a CT of the head, carotid duplex and 2-D echo which were unremarkable. Minimally elevated troponin History of severe mitral regurgitation with the recent mitral valve replacement on 04/20/2023 at [facility] Hypertension Hyperlipidemia Plan: I ordered MRI the brain Primary team consulted cardiology team for a CALEB Patient is currently on aspirin 81 mg her home dose. Recommend Plavix 75mg daily but patient was still hold off at this current moment until the MRI comes back. Start the patient on Lipitor 40 mg daily at bedtime for seconds each prophylaxis Continue neuro checks Cardiac monitoring PT, OT and [facility] are consulted Cardiology is consulted We'll defer the rest of the medical management the primary and other specialists For DVT prophylaxis I started the patient on subcu heparin 5000 units every 12 hours I discussed with the patient and all her questions are answered. Thank you for the consultation Time with Patient: Greater than 30
[2023-04-29] MEDS: SODIUM CHLORIDE 0.9% 500 ML 500 ML IV ONE (13:40)
[2023-04-29] MEDS: BENZOCAINE SPRAY 1 CAN TOPICAL ONE (13:49)
[2023-04-29] MEDS: MIDAZOLAM 2 MG/2 ML VIAL IVP ONE ×2 (13:51→13:53)
[2023-04-29] MEDS: fentaNYL (PF) 50 MCG/ML 2 ML AMP IVP ONE (13:51)
--- NOTE | 2023-04-29 15:47 | MR ---
EXAMINATION TYPE: MR brain wo con DATE OF EXAM: 04/29/2023 COMPARISON: CT brain 04/28/2023 HISTORY: Stroke CONTRAST: Performed utilizing 0 mL intravenous Gadavist gadolinium contrast. TECHNIQUE: Multiplanar, multiecho imaging on a 3.0 Guerda magnet is performed through the brain. Stud y is performed within 24 hours of arrival to the hospital. The craniovertebral junction is normal. The pituitary is normal. Diffusion-weighted imaging is performed. No abnormal hyperintensity is present to suggest an acute i ntracranial infarct or acute ischemic change. Couple of punctate deep white matter changes may be present. Signal within the brain is largely unrem arkable. Ventricles and sulci are appropriate for the patient age. IMPRESSION: 1. Minimal chronic appearing white matter ischemic type changes not out of proportion to the patient' s age. 2. No suspicious acute intracranial changes.
[2023-04-29] MEDS: fentaNYL (PF) 50 MCG/ML 2 ML AMP ONE (16:53)
[2023-04-29] MEDS: SODIUM CHLORIDE 0.9% 1,000 ML IV SCH (17:17)
--- NOTE | 2023-04-29 18:49 | P.PCN ---
Date of Procedure: 04/29/23 Operative Findings: TRANSESOPHAGEAL ECHOCARDIOGRAM CAD INTERN: JIMMY CALDERON MD, RPVI INDICATION: Rule out cardiac source of embolization in this 68-year-old female patient who underwent recently mitral valve repair and presented to the hospital with a TIA SEDATION: Conscious sedation COMPLICATION: None LEVEL OF SEDATION Moderate with sedation length of 12 minutes PROCEDURE DESCRIPTION: After obtaining an informed consent, the patient was brought to transesophageal echocardiogram room. Pulse oximetry and heart monitors were attached to the patient. The patient throat was sprayed using lidocaine. The patient was turned into left lateral position. After that a bite guard was placed. After an appropriate conscious sedation was initiated, the transesophageal echocardiogram was advanced through a bite guard into the mid esophagus. A 2-D echocardiogram images, color Doppler images, continuous wave images, puls e-wave images, of various cardiac structure were performed. After that the transesophageal echocardiogram probe was advanced into the stomach and fixed to obtain transgastric view was. The probe was brought into the mid esophagus. Inter-atrial septum was interrogated using 2D images, color Doppler images, and then contrast study. After that transesophageal echocardiogram was withdrawn out and upon withdrawing the descending thoracic aorta all the way up to the arch was evaluated.] CONCLUSION: 1. 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 Repaired mitral valve with mild mitral regurgitation only. 3. Trileaflet aortic valve with no stenosis and mild insufficiency 4. Intact left atrial appendage with no thrombus 5. No evidence of pericardial effusion 6. Mild to moderate tricuspid regurgitation
[2023-04-29] MEDS: HEPARIN SODIUM,PORCINE 5,000 UNIT/ML 1 ML VIAL SQ SCH (20:20)
[2023-04-29] MEDS: ATORVASTATIN 40 MG TAB PO SCH (20:20)
--- NOTE | 2023-04-30 08:22 | P.PN ---
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 She was seen and evaluated this morning. She is asymptomatic. She is hemodynamically stable. Neurology service on the case as well. Currently she is on antiplatelet. The examination is remarkable for regular rhythm with a soft systolic murmur at the apical area and clear breathing sounds bilaterally and no edema was noted Assessment TIA Valvular heart disease Plan Continue the current medical regimen Possible PFO closure down the line to be done either locally here or where she underwent the surgery at [facility] The patient potentially can be discharged Objective - Vital Signs Vital signs: Vital Signs Temp 98.1 F 04/30/23 04:28 Pulse 97 04/30/23 04:28 Resp 16 04/30/23 04:28 BP 115/78 04/30/23 04:28 Pulse Ox 94 L 04/30/23 04:28 FiO2 Intake & Output 04/29/23 04/30/23 04/30/23 18:59 06:59 18:59 Intake Total 40 Balance 40 Weight 81.647 kg Intake: Intake, IV Titration 40 Amount Sodium Chloride 0.9% 1, 40 000 ml @ 20 mls/hr IV . Q24H [facility] Rx#:[id number] Other: Voiding Method Toilet - Labs CBC & Chem 7: 04/29/23 07:57 04/29/23 07:57 Labs: Abnormal Lab Results - Last 24 Hours (Table) 04/28/23 04/29/23 04/29/23 Range/Units 16:16 07:57 07:57 RBC 3.36 L (3.80-5.40) m/uL Hgb 10.7 L (11.4-16.0) gm/dL Hct 33.2 L (34.0-46.0) % Plt Count 581 H (150-450) k/uL Glucose 103 H (74-99) mg/dL AST 72 H (14-36) U/L ALT 173 H (4-34) U/L Troponin I (0.000-0.034) ng/mL Total Protein 5.8 L (6.3-8.2) g/dL Cholesterol 202.00 H (0.00-200.00) mg/dL 04/29/23 04/29/23 04/29/23 Range/Units 07:57 10:23 18:09 RBC (3.80-5.40) m/uL Hgb (11.4-16.0) gm/dL Hct (34.0-46.0) % Plt Count (150-450) k/uL Glucose (74-99) mg/dL AST (14-36) U/L ALT (4-34) U/L Troponin I 0.098 H* 0.088 H* 0.073 H* (0.000-0.034) ng/mL Total Protein (6.3-8.2) g/dL Cholesterol (0.00-200.00) mg/dL
[2023-04-30] MEDS: CLOPIDOGREL 75 MG TAB PO SCH (08:25)
[2023-04-30 08:51] VITALS: BP 120/68; PULSE 96; RESP 17; TEMP 98.5
--- NOTE | 2023-04-30 17:07 | P.DS ---
Providers Date of admission: 04/28/23 19:41 Attending physician: Micheal Choi Consults: 04/28/23 19:39 Consult Physician Routine Consulting Provider: Benito Plascencia Consult Reason/Comments: TIA. Right ext. numbness, resolved Do you want consulting provider notified?: Yes 04/29/23 05:32 Consult Physician Routine Consulting Provider: Nain Fernandez Consult Reason/Comments: Possible need CALEB, TIA 1 week after mitral valve surgery Do you want consulting provider notified?: Yes Primary care physician: [facility] Course: HISTORY OF PRESENT ILLNESS: 68-year-old female 1 of obstipation with history of hypertension, hyperlipidemia, severe mitral regurgitation post mitral valve placement this last week with Dr. King at [facility] which apparently patient was released from [facility] last night. She developed around 1:30 in the afternoon today to have slight problem with visual disturbance affecting the right side in the peripheral area of her vision become more blurry then was associated with slight numbness on the right side of her arm and leg felt revision was a big factor for it as well. She has mild lightheadedness with no dizziness. Did not have any slurred speech no droopy face no weakness of the upper or lower extremity. EMS was activated and brought patient to the emergency department her NIH score was 0. Laboratory evaluation showed low-grade anemia with hemoglobin of 10.6 mildly thrombocytosis at 505, still have mild hyponatremia 136 with mild hyperglycemia slightly elevated liver function test with elevated ALT and AST. Troponin was mildly elevated at 0.098. CAT scan of the brain shows no acute intracranial process recommend MRI if there is any suspicion. Chest x- ray shows plate atelectasis at the right lung base. Patient is not acting somebody has pneumonia at this point. Notifying cardiovascular chemotherapy for the hospital they did not see any need for her to be transferred, referred back to the watch study and see neurology in town unfinalized testing. My fear whether patient will require to have transesophageal echocardiogram or not and how much this is an impact review with the recent surgery. The decision is to be left up to the food checker by tomorrow probably. 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 As the event had happened which is TIA can be blamed on PFO at this point there is no sign of A- fib found with her hospitalization this time and was not found with her last hospitalization 100 for this last week. At this point still stand clear that patient need to be on Plavix and to look into the possibility of fixing her PFO as the best next step, after she fixed her PFO she can be off Plavix specially if it has been more than 3 weeks. For the time being patient is going back to see Dr. King and talk to him about the possibility the option in his opinion whether need to fix PFO or not copy of the transesophageal echocardiogram was given to the patient she will be back to be seen in the office this coming week she will be seeing her food checker as well this week. REVIEW OF SYSTEMS: CONSTITUTIONAL: Well-developed no acute respiratory distress. EYES: No icterus sclerae, no conjunctivitis. EARS, NOSE, MOUTH, THROAT, and FACE: No sore throat, lymphadenopathy, carotid bruits or deformity. RESPIRATORY: No SOB cough or wheezes. Chest wall with surgery with no sign of infection. CARDIOVASCULAR: No CP, Palpitation, PND, Orthopnea, or angina. GASTROINTESTINAL: No Abd pain, Nausea or vomiting, no Diarrhea or constipation, No GI Bleed, no distention or masses. GENITOURINARY: Negative for Hematuria or UTI, no kidney stones. INTEGUMENT/BREAST: Negative for any muscular injury with mild osteoarthritis.. HEMATOLOGIC/LYMPHATIC: Negative for bleed or purpura. MUSCULOSKELTAL: Negative for Myalgia or arthralgia. NEURLOGICAL: No LOC, Sz or syncope, blurred vision dizziness or abnormality.. BEHAVIORAL/PSYCH: Negative. ENDOCRINE: Negative. PHYSICAL EXAMINATION: General Appearance: Alert, cooperative, no distress, appears stated age. Neck HEENT: Supple, no lymphadenopathy, no thyroid enlargement, no carotid bruits. Lungs: Clear to auscultation without crackles or wheezes no rhonchi, no deformity. Chest Wall: Incision from her open heart surgery still looks clean no irritation infection or induration around it., no costochondral pain or discomfort. Heart: Regular rate and rhythm, S1, S2 normal, slightly bradycardia with systolic murmur. Back: Symmetric, no curvature, ROM normal, no CVA tenderness. Abdomen: Soft, non-tender, bowel sounds active all four quadrants, no masses, no organomegaly. Extremities: Extremities normal, atraumatic, no cyanosis or edema. Pulses: 2+ and symmetric. Skin: Skin color, texture, tugor normal, no rashes or lesions. Neurologic: Alert oriented x3 cranial nerves II through XII intact, no motor deficit, slight numbness in the right side visual acuity and vision is normal, not able to do balance and gait. ASSESSMENT AND PLAN: _TIA: Not a clear etiology at this point no sign of A-fib the patient had mitral valve surgery this last week the possibility and of having thrombus specially if no anticoagulation, patient ended up having transesophageal echocardiogram along with MRI of the brain CALEB showed PFO and slight ballooning on the wall of the atrium. MRI did not show any major abnormality. Patient will remain on Plavix till she talk and possibly look in fixing her PFO. _PFO: Finding with transesophageal echocardiogram patient will be discussed the possibility of fixing it with her cardiothoracic surgeon that initially she might have her food checker in town look into PFO closure. _Severe mitral regurgitation post mitral valve surgery will be back to see cardiology in the next week or so. _Elevated troponin: Which could be secondary to troponin leak shortly after surgery. _Abnormal liver function test which can be transitional hypoxic hepatitis from hypoperfusion after surgery ultrasound of the gallbladder and the liver will be done. Testing is much better and back to normal. _Elevated blood pressure, supposed to be on smaller dose of beta-bipin but patient is not on currently. _Iron deficiency anemia: Still on iron supplement regular basis. _GI prophylaxis: She will be on Pepcid 20 mg daily. Hospital course: Patient was admitted after her TIA within 24 hours of leaving the hospital for her mitral valve surgery. Consult cardiology PFO was found on transesophageal echocardiogram, consult neurology had MRI of the brain did not show any major abnormality. In agreement this point to keep patient on Plavix and she will be looking into discussed the possibility of fixing her PFO with her cardiothoracic surgeon she will remain on Plavix daily this is done our at least for 3 weeks from her admission. Patient was discharged in stable condition. Time spent on patient discharge more than 35 minutes. Patient Condition at Discharge: Good Plan - Discharge Summary Discharge Rx Participant: No New Discharge Prescriptions: New Clopidogrel [Plavix] 75 mg PO DAILY #30 tab Atorvastatin [Lipitor] 40 mg PO HS #30 tablet Continue Multivit-Min/Iron/Folic/Lutein [Centrum Silver Women Tablet] 1 tab PO DAILY Cyclobenzaprine [Flexeril] 5 mg PO TID PRN PRN Reason: Muscle Pain Aspirin 81 mg PO DAILY Vit C/E/Zn/Coppr/Lutein/Zeaxan [Preservision Areds 2 Softgel] 1 cap PO DAILY Cholecalciferol [Vitamin D3 (25 Mcg = 1000 Iu)] 25 mcg PO DAILY Acetaminophen [Tylenol] 650 mg PO Q4H PRN PRN Reason: Pain Or Fever > 100.5 Ferrous Sulfate [Iron (65 MG Elemental)] 325 mg PO DAILY Discharge Medication List Multivit-Min/Iron/Folic/Lutein [Centrum Silver Women Tablet] 1 tab PO DAILY 11/29/17 [History] Cholecalciferol [Vitamin D3 (25 Mcg = 1000 Iu)] 25 mcg PO DAILY 12/20/22 [History] Acetaminophen [Tylenol] 650 mg PO Q4H PRN 04/28/23 [History] Aspirin 81 mg PO DAILY 04/28/23 [History] Cyclobenzaprine [Flexeril] 5 mg PO TID PRN 04/28/23 [History] Ferrous Sulfate [Iron (65 MG Elemental)] 325 mg PO DAILY 04/28/23 [History] Vit C/E/Zn/Coppr/Lutein/Zeaxan [Preservision Areds 2 Softgel] 1 cap PO DAILY 04/28/23 [History] Atorvastatin [Lipitor] 40 mg PO HS #30 tablet 04/30/23 [Rx] Clopidogrel [Plavix] 75 mg PO DAILY #30 tab 04/30/23 [Rx] Follow up Appointment(s)/Referral(s): Jimbo King MD [REFERRING] - 05/10/23 Micheal Choi MD [Primary Care Provider] - 05/04/23 Patient Instructions/Handouts: Transient Ischemic Attack (DC), Patent Foramen Ovale (DC) Discharge Disposition: HOME SELF-CARE
--- NOTE | 2023-05-03 11:42 | P.PN ---
Subjective Progress Note Date: 04/29/23 HISTORY OF PRESENT ILLNESS: 68-year-old female 1 of obstipation with history of hypertension, hyperlipidemia, severe mitral regurgitation post mitral valve placement this last week with Dr. King at [facility] which apparently patient was released from [facility] last night. She developed around 1:30 in the afternoon today to have slight problem with visual disturbance affecting the right side in the peripheral area of her vision become more blurry then was associated with slight numbness on the right side of her arm and leg felt revision was a big factor for it as well. She has mild lightheadedness with no dizziness. Did not have any slurred speech no droopy face no weakness of the upper or lower extremity. EMS was activated and brought patient to the emergency department her NIH score was 0. Laboratory evaluation showed low-grade anemia with hemoglobin of 10.6 mildly thrombocytosis at 505, still have mild hyponatremia 136 with mild hyperglycemia slightly elevated liver function test with elevated ALT and AST. Troponin was mildly elevated at 0.098. CAT scan of the brain shows no acute intracranial process recommend MRI if there is any suspicion. Chest x- ray shows plate atelectasis at the right lung base. Patient is not acting someb sharon has pneumonia at this point. Notifying cardiovascular chemotherapy for the hospital they did not see any need for her to be transferred, referred back to the watch study and see neurology in town unfinalized testing. My fear whether patient will require to have transesophageal echocardiogram or not and how much this is an impact review with the recent surgery. The decision is to be left up to the cheese cutter by tomorrow probably. 04-29-2023: Patient is feeling better she is not having any further neurology At this point going for testing including transesophageal echocardiogram neurology consultation still pending and she still having to go for an MRI of the brain. REVIEW OF SYSTEMS: CONSTITUTIONAL: Well-developed no acute respiratory distress. EYES: No icterus sclerae, no conjunctivitis. EARS, NOSE, MOUTH, THROAT, and FACE: No sore throat, lymphadenopathy, carotid bruits or deformity. RESPIRATORY: No SOB cough or wheezes. Chest wall with surgery with no sign of infection. CARDIOVASCULAR: No CP, Palpitation, PND, Orthopnea, or angina. GASTROINTESTINAL: No Abd pain, Nausea or vomiting, no Diarrhea or constipation, No GI Bleed, no distention or masses. GENITOURINARY: Negative for Hematuria or UTI, no kidney stones. INTEGUMENT/BREAST: Negative for any muscular injury with mild osteoarthritis.. HEMATOLOGIC/LYMPHATIC: Negative for bleed or purpura. MUSCULOSKELTAL: Negative for Myalgia or arthralgia. NEURLOGICAL: No LOC, Sz or syncope, blurred vision dizziness or abnormality.. BEHAVIORAL/PSYCH: Negative. ENDOCRINE: Negative. PHYSICAL EXAMINATION: General Appearance: Alert, cooperative, no distress, appears stated age. Neck HEENT: Supple, no lymphadenopathy, no thyroid enlargement, no carotid bruits. Lungs: Clear to auscultation without crackles or wheezes no rhonchi, no deformity. Chest Wall: Incision from her open heart surgery still looks clean no irritation infection or induration around it., no costochondral pain or discomfort. Heart: Regular rate and rhythm, S1, S2 normal, slightly bradycardia with systolic murmur. Back: Symmetric, no curvature, ROM normal, no CVA tenderness. Abdomen: Soft, non-tender, bowel sounds active all four quadrants, no masses, no organomegaly. Extremities: Extremities normal, atraumatic, no cyanosis or edema. Pulses: 2+ and symmetric. Skin: Skin color, texture, tugor normal, no rashes or lesions. Neurologic: Alert oriented x3 cranial nerves II through XII intact, no motor deficit, slight numbness in the right side visual acuity and vision is normal, not able to do balance and gait. ASSESSMENT AND PLAN: _TIA: Not a clear etiology whether she had A-fib had caused a problem or will expected to have thrombus behind the mitral valve she had surgery on waiting for her transesophageal echocardiogram in the reminder of her MRI. _PFO: Finding with transesophageal echocardiogram patient will be discussed the possibility of fixing it with her cardiothoracic surgeon that initially she might have her cheese cutter in town look into PFO closure. _Severe mitral regurgitation post mitral valve surgery will be back to see cardiology in the next week or so. _Elevated troponin: This is more troponin leak no need for any management for it no sign of ischemic change. _Abnormal liver function test much better so far no sign of liver problem. _Elevated blood pressure, supposed to be on smaller dose of beta-bipin but patient is not on currently. _Iron deficiency anemia: Still on iron supplement regular basis. _GI prophylaxis: She will be on Pepcid 20 mg daily. Objective - Vital Signs Vital signs: Vital Signs Temp 98.5 F 04/30/23 08:23 Pulse 96 04/30/23 08:23 Resp 17 04/30/23 08:23 BP 120/68 04/30/23 08:23 Pulse Ox 94 L 04/30/23 08:23 FiO2 - Labs CBC & Chem 7: 04/29/23 07:57 04/29/23 07:57
--- NOTE | 2023-05-04 06:09 | P.PN ---
Subjective Progress Note Date: 04/29/23 HISTORY OF PRESENT ILLNESS: 68-year-old female 1 of obstipation with history of hypertension, hyperlipidemia, severe mitral regurgitation post mitral valve placement this last week with Dr. King at [facility] which apparently patient was released from [facility] last night. She developed around 1:30 in the afternoon today to have slight problem with visual disturbance affecting the right side in the peripheral area of her vision become more blurry then was associated with slight numbness on the right side of her arm and leg felt revision was a big factor for it as well. She has mild lightheadedness with no dizziness. Did not have any slurred speech no droopy face no weakness of the upper or lower extremity. EMS was activated and brought patient to the emergency department her NIH score was 0. Laboratory evaluation showed low-grade anemia with hemoglobin of 10.6 mildly thrombocytosis at 505, still have mild hyponatremia 136 with mild hyperglycemia slightly elevated liver function test with elevated ALT and AST. Troponin was mildly elevated at 0.098. CAT scan of the brain shows no acute intracranial process recommend MRI if there is any suspicion. Chest x- ray shows plate atelectasis at the right lung base. Patient is not acting someb sharon has pneumonia at this point. Notifying cardiovascular chemotherapy for the hospital they did not see any need for her to be transferred, referred back to the watch study and see neurology in town unfinalized testing. My fear whether patient will require to have transesophageal echocardiogram or not and how much this is an impact review with the recent surgery. The decision is to be left up to the parks and recreation manager by tomorrow probably. 04-29-2023: Patient is feeling better she is not having any further neurology At this point going for testing including transesophageal echocardiogram neurology consultation still pending and she still having to go for an MRI of the brain. REVIEW OF SYSTEMS: CONSTITUTIONAL: Well-developed no acute respiratory distress. EYES: No icterus sclerae, no conjunctivitis. EARS, NOSE, MOUTH, THROAT, and FACE: No sore throat, lymphadenopathy, carotid bruits or deformity. RESPIRATORY: No SOB cough or wheezes. Chest wall with surgery with no sign of infection. CARDIOVASCULAR: No CP, Palpitation, PND, Orthopnea, or angina. GASTROINTESTINAL: No Abd pain, Nausea or vomiting, no Diarrhea or constipation, No GI Bleed, no distention or masses. GENITOURINARY: Negative for Hematuria or UTI, no kidney stones. INTEGUMENT/BREAST: Negative for any muscular injury with mild osteoarthritis.. HEMATOLOGIC/LYMPHATIC: Negative for bleed or purpura. MUSCULOSKELTAL: Negative for Myalgia or arthralgia. NEURLOGICAL: No LOC, Sz or syncope, blurred vision dizziness or abnormality.. BEHAVIORAL/PSYCH: Negative. ENDOCRINE: Negative. PHYSICAL EXAMINATION: General Appearance: Alert, cooperative, no distress, appears stated age. Neck HEENT: Supple, no lymphadenopathy, no thyroid enlargement, no carotid bruits. Lungs: Clear to auscultation without crackles or wheezes no rhonchi, no deformity. Chest Wall: Incision from her open heart surgery still looks clean no irritation infection or induration around it., no costochondral pain or discomfort. Heart: Regular rate and rhythm, S1, S2 normal, slightly bradycardia with systolic murmur. Back: Symmetric, no curvature, ROM normal, no CVA tenderness. Abdomen: Soft, non-tender, bowel sounds active all four quadrants, no masses, no organomegaly. Extremities: Extremities normal, atraumatic, no cyanosis or edema. Pulses: 2+ and symmetric. Skin: Skin color, texture, tugor normal, no rashes or lesions. Neurologic: Alert oriented x3 cranial nerves II through XII intact, no motor deficit, slight numbness in the right side visual acuity and vision is normal, not able to do balance and gait. ASSESSMENT AND PLAN: _TIA: Not a clear etiology whether she had A-fib had caused a problem or will expected to have thrombus behind the mitral valve she had surgery on waiting for her transesophageal echocardiogram in the reminder of her MRI. _PFO: Finding with transesophageal echocardiogram patient will be discussed the possibility of fixing it with her cardiothoracic surgeon that initially she might have her parks and recreation manager in town look into PFO closure. _Severe mitral regurgitation post mitral valve surgery will be back to see cardiology in the next week or so. _Elevated troponin: This is more troponin leak no need for any management for it no sign of ischemic change. _Abnormal liver function test much better so far no sign of liver problem. _Elevated blood pressure, supposed to be on smaller dose of beta-bipin but patient is not on currently. _Iron deficiency anemia: Still on iron supplement regular basis. _GI prophylaxis: She will be on Pepcid 20 mg daily. Objective - Vital Signs Vital signs: Vital Signs Temp 98.5 F 04/30/23 08:23 Pulse 96 04/30/23 08:23 Resp 17 04/30/23 08:23 BP 120/68 04/30/23 08:23 Pulse Ox 94 L 04/30/23 08:23 FiO2 - Labs CBC & Chem 7: 04/29/23 07:57 04/29/23 07:57
== END 2023-04-30 09:56 | disposition home or self-care (01) | DRG 69 ==
LOC: EC 15:08 → 3SCARD 19:41
PROVIDERS: ADMIT Internal Medicine Geriatric Medicine; ATTEND Internal Medicine Geriatric Medicine
PROC: B24BZZ4 Ultrasonography of Heart with Aorta, Transesophageal (ICD-10-PCS; principal; 2023-04-29 16:55)
DX: G45.9 Transient cerebral ischemic attack, unspecified (principal); Q21.12 Patent foramen ovale; E87.1 Hypo-osmolality and hyponatremia; H53.121 Transient visual loss, right eye; J98.11 Atelectasis; D50.9 Iron deficiency anemia, unspecified; I10 Essential (primary) hypertension; Z95.2 Presence of prosthetic heart valve; R16.0 Hepatomegaly, not elsewhere classified; D75.839 Thrombocytosis, unspecified; I83.90 Asymptomatic varicose veins of unspecified lower extremity; E78.5 Hyperlipidemia, unspecified; K59.00 Constipation, unspecified; M25.519 Pain in unspecified shoulder; R74.01 Elevation of levels of liver transaminase levels; H35.30 Unspecified macular degeneration; R73.9 Hyperglycemia, unspecified; R79.89 Other specified abnormal findings of blood chemistry; M19.90 Unspecified osteoarthritis, unspecified site; Z79.82 Long term (current) use of aspirin; Z79.899 Other long term (current) drug therapy; Z85.828 Personal history of other malignant neoplasm of skin; Z86.73 Personal history of transient ischemic attack (TIA), and cerebral infarction without residual deficits; Z87.768 Personal history of other specified (corrected) congenital malformations of integument, limbs and musculoskeletal system
CPT/HCPCS: 36415; 70450; 70551; 71046; 76705; 80053; 80061; 82550; 83880; 84484; 85025; 85610; 85730; 93005; 93306; 93312; 93320; 93325; 93880; 99285

== ENCOUNTER → 2024-03-15 | Outpatient (CLI) | payer MEDICARE, BC ==
--- NOTE | 2024-03-15 15:27 | MM ---
Reason for Exam: Screening (asymptomatic). Last mammogram was performed 1 year(s) and 1 month(s) ago. Patient History: Menarche at age 14. First Full-Term at age 21. Postmenopausal. Other cancer. Hormonal Contraceptives for 5 years from age 21 until age 30. Maternal cousin had breast cancer, age 65. Maternal aunt had breast cancer, age 70. Risk Values: Crystal 5 year model risk: 1.5%. NCI Lifetime model risk: 5.2%. Prior Study Comparison: 12/15/2020 Bilateral Screening Mammogram, [facility]. 01/14/2022 Bilateral MG 3D screening mammo w/cad, [facility]. 02/09/2023 Bilateral MG 3D screening mammo w/cad, [facility]. Tissue Density: There are scattered areas of fibroglandular density. Findings: Analyzed By CAD. Some scattered small benign-appearing round calcifications bilaterally are redemonstrated. There is a new 1.7 cm mass in the posterior depth upper outer aspect right breast and warrants further workup. Stable 1.1 cm obscured mass in the marked medial left breast middle depth from 2021 mammogram. Overall Assessment: Incomplete: need additional imaging evaluation, BI-RAD 0 Management: Diagnostic Breast Ultrasound of the right breast. Targeted ultrasound right breast. Patient should continue monthly self-breast exams. A clinical breast exam by your physician is recommended on an annual basis. This exam should not preclude additional follow-up of suspicious palpable abnormalities. Note on Crystal scores and lifetime risk: 1. A Crystal score greater than 3% is considered moderate risk. If this is the case, consider specialist referral to assess eligibility for a risk reducing agent. 2. If overall lifetime risk for the development of breast cancer is 20% or higher, the patient may qualify for future screening with alternating mammogram and breast MRI. [facility], , 03/15/2024 3:23 PM. Electronically signed and approved by: Jaciel Fleming M.D.
== END | disposition home or self-care (01) ==
LOC: RADMAMWWP 14:30
PROVIDERS: ATTEND Internal Medicine Geriatric Medicine
DX: Z12.31 Encounter for screening mammogram for malignant neoplasm of breast (principal); Z78.0 Asymptomatic menopausal state; Z80.3 Family history of malignant neoplasm of breast; R92.323 Mammographic fibroglandular density, bilateral breasts
CPT/HCPCS: 77063; 77067

== ENCOUNTER → 2024-03-22 | Outpatient (CLI) | payer MEDICARE, BC ==
--- NOTE | 2024-03-22 15:39 | USB ---
Reason for Exam: Additional evaluation requested from abnormal screening. Patient History: Menarche at age 14. First Full-Term at age 21. Postmenopausal. Other cancer. Hormonal Contraceptives for 5 years from age 21 until age 30. Maternal cousin had breast cancer, age 65. Maternal aunt had breast cancer, age 70. Risk Values: Crystal 5 year model risk: 1.5%. NCI Lifetime model risk: 5.2%. Technique: Method: Targeted. Prior Study Comparison: 01/14/2022 Bilateral MG 3D screening mammo w/cad, [facility]. 02/09/2023 Bilateral MG 3D screening mammo w/cad, [facility]. 03/15/2024 Bilateral MG 3D screening mammo w/cad, [facility]. Findings: The upper outer quadrant of the right breast, the axilla of the right breast and the retroareolar of the right breast were scanned. Targeted ultrasound upper outer quadrant right breast 9:00 to 12:00 including scanning of the subareolar region and axilla. There is a gently lobulated oval circumscribed lesion measuring 1.3 x 1.1 x 0.6 cm located 10 cm from the nipple, likely mammographic correlate. We favor a cyst with internal echoes representing either artifact due to deep location or debris. Six-month follow-up is recommended. Overall Assessment: Probably benign, BI-RAD 3 Management: Diagnostic Mammogram of the right breast in 6 months. Diagnostic Breast Ultrasound of the right breast in 6 months. A clinical breast exam by your physician is recommended on an annual basis and results should be correlated with mammographic findings. This exam should not preclude additional follow-up of suspicious palpable abnormalities. Results were given to the patient verbally at the time of exam. [facility], , 03/22/2024 3:36 PM. Electronically signed and approved by: Alexandra Barba M.D. Radiologist
== END | disposition home or self-care (01) ==
LOC: RADUSWWP 14:55
PROVIDERS: ATTEND Internal Medicine Geriatric Medicine
DX: R92.8 Other abnormal and inconclusive findings on diagnostic imaging of breast (principal); Z78.0 Asymptomatic menopausal state; Z80.3 Family history of malignant neoplasm of breast